=== PATIENT | male | born 1935 | race Caucasian/White ===

== ENCOUNTER 2016-04-02 10:49 | Outpatient (CLI) | payer MEDICARE | END 2016-04-02 10:50 | disposition home or self-care (01) | DX: E29.1 Testicular hypofunction (principal) ==

== ENCOUNTER 2016-05-15 08:57 | Outpatient (CLI) | payer MEDICARE | END 2016-05-15 08:58 | disposition home or self-care (01) | DX: E78.5 Hyperlipidemia, unspecified (principal); E29.1 Testicular hypofunction ==

== ENCOUNTER 2016-05-22 10:20 | Outpatient (CLI) | payer MEDICARE | END 2016-05-22 10:21 | disposition home or self-care (01) | DX: E78.5 Hyperlipidemia, unspecified (principal); E29.1 Testicular hypofunction ==

== ENCOUNTER 2016-09-16 09:09 | Outpatient (CLI) | payer MEDICARE ==
[2016-09-16 18:28] LABS: BASOPHILS # (AUTO) 0.1 10^3/uL (0.0-0.1); EOSINOPHILS # (AUTO) 0.4 10^3/uL (0.0-0.7); EOSINOPHILS % (AUTO) 5.1 %; HCT - HEMATOCRIT 37.5 % (42.0-52.0); HGB - HEMOGLOBIN 12.5 g/dL (14.0-18.0); LYMPHOCYTES # (AUTO) 1.8 10^3/uL (1.5-3.5); LYMPHOCYTES % (AUTO) 24.8 %; MEAN CORPUSCULAR HEMOGLOBIN 32.3 pg (27.0-31.0); MEAN CORPUSCULAR HGB CONC 33.3 g/dL (32.0-36.0); MEAN CORPUSCULAR VOLUME 96.8 fL (80.0-94.0); MONOCYTES # (AUTO) 0.7 10^3/uL (0.0-1.0); MONOCYTES % (AUTO) 9.3 %; NEUTROPHILS # (AUTO) 4.2 10^3/uL (1.5-6.6); NEUTROPHILS % (AUTO) 59.8 %; NUCLEATED RED BLOOD CELLS AUTO 0.1 /100WBC; RED BLOOD COUNT 3.87 10^6/uL (4.70-6.10); RED CELL DISTRIBUTION WIDTH 13.3 % (12.0-15.0); UNCORRECTED WHITE BLOOD COUNT 7.1 x10^3/uL; WHITE BLOOD COUNT 7.1 x10^3/uL (4.8-10.8)
[2016-09-16 19:09] LABS: ALBUMIN/GLOBULIN RATIO 1.7 (1.0-2.2); BILIRUBIN,TOTAL 0.4 mg/dL (0.2-1.0); CALCIUM 9.5 mg/dL (8.5-10.3); CREATININE 1.3 mg/dL (0.6-1.2); POTASSIUM 4.7 mmol/L (3.5-5.0)
[2016-09-18 22:21] LABS: TEST RESULT REPORT (())
== END 2016-09-16 09:10 | disposition home or self-care (01) ==
LOC: LAB.F 09:09
PROVIDERS: ATTEND Physician Assistant Medical
DX: I10 Essential (primary) hypertension (principal)
CPT/HCPCS: 36415; 80053; 81599; 84270; 84402; 84403; 85025

== ENCOUNTER 2016-11-03 09:24 | Outpatient (CLI) | payer MEDICARE ==
[2016-11-03 18:44] LABS: CHOL/HDL RATIO 3.4 (<5.0); CHOLESTEROL 141 mg/dL; HDL CHOLESTEROL 41 mg/dL; LDL/HDL RATIO 2.1 (<3.6); TRIGLYCERIDES 71 mg/dL; VLDL CHOLESTEROL 14 mg/dL
== END 2016-11-03 09:25 | disposition home or self-care (01) ==
LOC: LAB.F 09:24
PROVIDERS: ATTEND Physician Assistant Medical
DX: E78.5 Hyperlipidemia, unspecified (principal); E29.1 Testicular hypofunction
CPT/HCPCS: 36415; 80061; 84403

== ENCOUNTER 2016-12-14 09:06 | Outpatient (CLI) | payer MEDICARE ==
[2016-12-14 17:50] LABS: BASOPHILS # (AUTO) 0.1 10^3/uL (0.0-0.1); BASOPHILS % (AUTO) 0.9 %; EOSINOPHILS # (AUTO) 0.3 10^3/uL (0.0-0.7); EOSINOPHILS % (AUTO) 5.3 %; HCT - HEMATOCRIT 37.2 % (42.0-52.0); HGB - HEMOGLOBIN 12.3 g/dL (14.0-18.0); LYMPHOCYTES # (AUTO) 2.1 10^3/uL (1.5-3.5); MEAN CORPUSCULAR HEMOGLOBIN 31.8 pg (27.0-31.0); MEAN CORPUSCULAR VOLUME 96.3 fL (80.0-94.0); MONOCYTES # (AUTO) 0.6 10^3/uL (0.0-1.0); MONOCYTES % (AUTO) 10.2 %; NEUTROPHILS # (AUTO) 2.9 10^3/uL (1.5-6.6); NEUTROPHILS % (AUTO) 48.6 %; NUCLEATED RED BLOOD CELLS AUTO 0.1 /100WBC; RED BLOOD COUNT 3.86 10^6/uL (4.70-6.10); RED CELL DISTRIBUTION WIDTH 13.6 % (12.0-15.0); UNCORRECTED WHITE BLOOD COUNT 5.9 x10^3/uL; WHITE BLOOD COUNT 5.9 x10^3/uL (4.8-10.8)
[2016-12-18 16:47] LABS: TEST RESULT REPORT
== END 2016-12-14 09:07 | disposition home or self-care (01) ==
LOC: LAB.F 09:06
PROVIDERS: ATTEND Physician Assistant Medical
DX: E29.1 Testicular hypofunction (principal); D64.9 Anemia, unspecified
CPT/HCPCS: 36415; 81599; 82670; 84402; 84403; 85025

== ENCOUNTER 2017-02-15 09:26 | Outpatient (CLI) | payer MEDICARE ==
[2017-02-15 18:50] LABS: ALBUMIN 4.6 g/dL (3.2-5.5); ALBUMIN/GLOBULIN RATIO 1.6 (1.0-2.2); ALKALINE PHOSPHATASE 48 IU/L (42-121); ALT ALANINE AMINOTRANSFERASE 30 IU/L (10-60); AST ASPARTATE AMINOTRANSFERASE 33 IU/L (10-42); BILIRUBIN,TOTAL 0.5 mg/dL (0.2-1.0); BUN - BLOOD UREA NITROGEN 35 mg/dL (6-20); CALCIUM 9.3 mg/dL (8.5-10.3); CARBON DIOXIDE - CO2 24 mmol/L (21-32); CHLORIDE 107 mmol/L (101-111); CHOL/HDL RATIO 3.8 (<5.0); CHOLESTEROL 169 mg/dL; CREATININE 1.5 mg/dL (0.6-1.2); GFR - MDRD 45 (>89); GLUCOSE 98 mg/dL (70-100); HDL CHOLESTEROL 44 mg/dL; LDL CHOLESTEROL,CALCULATED 105 mg/dL; LDL/HDL RATIO 2.4 (<3.6); SODIUM 138 mmol/L (135-145); TOTAL PROTEIN 7.4 g/dL (6.7-8.2); VLDL CHOLESTEROL 20 mg/dL
== END 2017-02-15 09:27 | disposition home or self-care (01) ==
LOC: LAB.F 09:26
PROVIDERS: ATTEND Physician Assistant Medical
DX: E29.1 Testicular hypofunction (principal); D64.9 Anemia, unspecified; E78.5 Hyperlipidemia, unspecified
CPT/HCPCS: 36415; 80053; 80061; 81599; 82607; 83721; 84402; 84403

== ENCOUNTER 2017-03-23 10:56 | Outpatient (CLI) | payer MEDICARE ==
[2017-03-23 18:40] LABS: CALCIUM 9.7 mg/dL (8.5-10.3); CREATININE 1.5 mg/dL (0.6-1.2)
== END 2017-03-23 10:57 | disposition home or self-care (01) ==
LOC: LAB.F 10:56
PROVIDERS: ATTEND Physician Assistant Medical
DX: N28.9 Disorder of kidney and ureter, unspecified (principal); E29.1 Testicular hypofunction
CPT/HCPCS: 36415; 80048; 81599; 84402; 84403

== ENCOUNTER 2017-05-06 09:39 | Outpatient (CLI) | payer MEDICARE ==
[2017-05-06 17:43] LABS: ALBUMIN 4.1 g/dL (3.2-5.5); ALBUMIN/GLOBULIN RATIO 1.6 (1.0-2.2); BILIRUBIN,TOTAL 0.5 mg/dL (0.2-1.0); CALCIUM 8.9 mg/dL (8.5-10.3); CREATININE 1.3 mg/dL (0.6-1.2); TOTAL PROTEIN 6.6 g/dL (6.7-8.2)
== END 2017-05-06 09:40 | disposition home or self-care (01) ==
LOC: LAB.F 09:39
PROVIDERS: ATTEND Physician Assistant Medical
DX: N28.9 Disorder of kidney and ureter, unspecified (principal)
CPT/HCPCS: 36415; 80053

== ENCOUNTER 2017-09-06 12:35 | Emergency (ER) | payer MEDICARE ==
[2017-09-06] MEDS ORDERED: ceFAZolin 2 GM/50 ML 2 GM/50 ML BAG IV ONE (13:43)
[2017-09-06] MEDS ORDERED: MORPHINE 10 MG/ML VIAL IVP STA (13:44)
[2017-09-06] MEDS ORDERED: TETANUS/DIPHTHERIA/PERTUSSIS 0.5 ML SYRINGE IM ONE (13:44)
--- NOTE | 2017-09-06 13:53 | ED Physician Documentation ---
PD HPI LOWER EXT INJURY - Stated complaint Stated Complaint: RIGHT LEG LAC - Chief complaint Chief Complaint: Laceration - History obtained from History obtained from: Patient - History of Present Illness PD HPI LOW EXT INJURY LOCATION: Right, Lower leg Type of injury: Laceration (chainsaw to the leg) Where injury occurred: Home Timing - onset: Today Timing - duration: Hours (1) Timing - details: Abrupt onset Pain level max: 5 Pain level now: 5 Improved by: Rest Worsened by: Moving, Palpating Associated symptoms: No: Weakness, Numbness, Tingling, Swelling Contributing factors: No: Anticoagulated Recently seen: Not recently seen Review of Systems Constitutional: denies: Fever, Chills Skin: denies: Rash Musculoskeletal: denies: Neck pain, Back pain PD PAST MEDICAL HISTORY - Past Medical History Cardiovascular: Hypertension Respiratory: None Endocrine/Autoimmune: None GI: None : None HEENT: None Psych: Depression Musculoskeletal: None Derm: None - Past Surgical History General: Appendectomy, Other HEENT: Other - Present Medications Home Medications: Ambulatory Orders Medication Instructions Recorded Confirmed Acetaminophen 1,000 mg PO BID PRN 10/15/15 12/09/15 Atorvastatin [Lipitor] 40 mg PO DAILY 10/15/15 12/09/15 Azelastine HCl 2 sprays INH DAILY 10/15/15 12/06/15 Gabapentin 300 mg PO BID 10/15/15 12/09/15 Lisinopril 5 mg PO DAILY 10/15/15 12/09/15 Multivit-Min/Iron Fum/Folic AC 1 tab PO DAILY 10/15/15 12/06/15 [Kfpwp-Zjzeesu-Jzcsqckn Tablet] Vardenafil HCl [Levitra] 2.5 mg PO ONCE PRN 10/15/15 12/06/15 Vit C/E/Zinc/Lutein/Zeaxanthin 1 each PO DAILY 10/15/15 12/06/15 [Ocuvite Eye [facility]] Vitamin B Complex Vit C No.4 150 mg PO DAILY 10/15/15 12/06/15 [Super B Complex] Cephalexin [Keflex] 500 mg PO Q6H #40 capsule 09/06/17 Hydrocodone/Acetaminophen 1 - 2 each PO Q6H PRN #14 tablet 09/06/17 [Hydrocodon-Acetaminophen 5-325] - Allergies Allergies/Adverse Reactions: Allergies Allergy/AdvReac Type Severity Reaction Status Date / Time No Known Drug Allergies Allergy Verified 09/06/17 13:31 PD ED PE NORMAL - Vitals Vital signs reviewed: Yes - General General: Alert and oriented X 3, No acute distress - HEENT HEENT: Moist mucous membranes - Neck Neck: Supple, no meningeal sign - Cardiac Cardiac: RRR - Respiratory Respiratory: No respiratory distress, Clear bilaterally - Abdomen Abdomen: Soft, Non tender, Non distended - Derm Derm: Warm and dry - Extremities Extremities: Other (R knee - proximal tibia deep laceration, bone visible.) Results - Vitals Vitals: Vital Signs - 24 hr 09/06/17 09/06/17 12:42 15:17 Temperature 36.8 C Heart Rate 71 58 L Respiratory 16 17 Rate Blood Pressure 116/81 H 133/96 H O2 Saturation 95 96 Oxygen O2 Source Room air - Labs Labs: Laboratory Tests 09/06/17 09/06/17 14:25 14:25 WBC 8.0 RBC 3.73 L Hgb 12.1 L Hct 35.9 L MCV 96.2 H MCH 32.4 H MCHC 33.7 RDW 13.6 Plt Count 188 MPV 9.4 Neut # (Auto) 5.2 Lymph # (Auto) 1.8 Inyo # (Auto) 0.6 Eos # (Auto) 0.3 Baso # (Auto) 0.0 Absolute Nucleated RBC 0.00 Nucleated RBC % 0.0 Sodium 137 Potassium 4.2 Chloride 106 Carbon Dioxide 25 Anion Gap 6.0 BUN 26 H Creatinine 1.2 Estimated GFR (MDRD) 58 L Glucose 89 Calcium 9.2 Total Bilirubin 0.8 AST 37 ALT 32 Alkaline Phosphatase 47 Total Protein 7.0 Albumin 4.1 Globulin 2.9 Albumin/Globulin Ratio 1.4 Lipase 47 - Rads (name of study) R knee xray Radiology: Prelim report reviewed, EMP read contemporaneously, See rad report ( 1. Possible minimal patella yosef. Query evidence of patellar tendon injury with soft tissue injury overlying the tibial tuberosity just inferior to the patellar tendon insertion. No fracture and no radiopaque foreign body however. 2. Minimal tricompartmental DJD. ) Procedures - Laceration (location) R knee Length in cm: 5 Wound type: Linear, Other (bone visible, but does not appear injured) Neurovascular status: Sensory intact, Motor intact, Vascular intact Tendon involvement: Tendon intact Anesthesia: Marcaine 0.5% Wound Preparation: Irrigated copiously NS Skin layer closure: Jarrett Other: Patient tolerated well, No complications, Neurovascular intact, Dressing applied, Tetanus booster given (tdap) Complexity: Simple PD MEDICAL DECISION MAKING - ED course Complexity details: reviewed results, re-evaluated patient, considered differential, d/w patient, d/w family, d/w [employer] sales consultant (Dr. Fried, came and evaluated the patient.) ED course: Patient is a 81-year-old male who presents to the emergency department with a laceration to the right lower from a chainsaw. Lacerations over the tibial tuberosity. X-ray does not show any bony abnormality or lecture. I consulted Dr. Fried, orthopedics who came and evaluated the patient. Feels that his tendon is intact. Recommends wound irrigation, closure and placed in a knee immobilizer. Will follow up in the office in 3 days for a wound check. Given IV Ancef and will place on Keflex. Tdap given. Wound closed. Warnings of infection and instructions on wound care given at bedside. Also counseled on how to minimize scarring. Patient counseled regarding signs and symptoms for which I believe and urgent re-evaluation would be necessary. Patient with good understanding of and agreement to plan and is comfortable going home at this time This document was made in part using voice recognition software. While efforts are made to proofread this document, sound alike and grammatical errors may occur. - Sepsis Event Vital Signs: Vital Signs - 24 hr 09/06/17 09/06/17 12:42 15:17 Temperature 36.8 C Heart Rate 71 58 L Respiratory 16 17 Rate Blood Pressure 116/81 H 133/96 H O2 Saturation 95 96 Oxygen O2 Source Room air Departure - Departure Disposition: 01 Home, Self Care Clinical Impression: Leg laceration Qualifiers: Encounter type: initial encounter Laterality: right Qualified Code(s): S81.811A - Laceration without foreign body, right lower leg, initial encounter Condition: Good Instructions: ED Laceration Ext Sutr Stap Tape Follow-Up: Didi Fried MD [Provider Admit Priv/Credential] - 09/09/17 Prescriptions: Cephalexin [Keflex] 500 mg PO Q6H #40 capsule Hydrocodone/Acetaminophen [Hydrocodon-Acetaminophen 5-325] 1 - 2 each PO Q6H PRN #14 tablet PRN Reason: pain Comments: Call the office for an appointment on for a wound check. Return if you worsen. Keep the wound clean and stay in the immobilizer. Return for redness, swelling or drainage from the wound Take all antibiotics until gone Discharge Date/Time: 09/06/17 15:32
[2017-09-06] MEDS ORDERED: BUPIVACAINE 0.5% PF 10 ML VIAL SUBQ STA (14:21)
--- NOTE | 2017-09-06 14:25 | XRAY Report ---
Procedure Date: 09/06/2017 Accession Number: [id number] / [id number] Procedure: XR - Knee 4 View RT CPT Code: FULL RESULT: EXAM: RIGHT KNEE RADIOGRAPHY EXAM DATE: 09/06/2017 02:12 PM. CLINICAL HISTORY: Right knee vs chainsaw. COMPARISON: None. TECHNIQUE: 3 views. FINDINGS: Bones: No acute displaced fracture. No suspicious focal osseous lesion. Tiny traction enthesophyte at the quadriceps insertion. Small well-corticated ossific density overlies the superior aspect of the medial tibial spine, likely intra-articular loose body and perhaps sequela of remote injury. Joints: No effusion. No dislocation. Possible patella yosef. Minimal spurring at the patella and medial and lateral compartments without definite joint space narrowing by noncontrast exam. No effusion. Soft Tissues: Soft tissue defect over the tibial tuberosity anteriorly. No radiopaque foreign body. IMPRESSION: 1. Possible minimal patella yosef. Query evidence of patellar tendon injury with soft tissue injury overlying the tibial tuberosity just inferior to the patellar tendon insertion. No fracture and no radiopaque foreign body however. 2. Minimal tricompartmental DJD. RADIA
[2017-09-06 14:35] LABS: BASOPHILS % (AUTO) 0.5 %; EOSINOPHILS # (AUTO) 0.3 10^3/uL (0.0-0.7); EOSINOPHILS % (AUTO) 4.2 %; HGB - HEMOGLOBIN 12.1 g/dL (14.0-18.0); LYMPHOCYTES # (AUTO) 1.8 10^3/uL (1.5-3.5); LYMPHOCYTES % (AUTO) 22.9 %; MEAN CORPUSCULAR HEMOGLOBIN 32.4 pg (27.0-31.0); MEAN CORPUSCULAR HGB CONC 33.7 g/dL (32.0-36.0); MEAN CORPUSCULAR VOLUME 96.2 fL (80.0-94.0); MEAN PLATELET VOLUME 9.4 fL (7.4-11.4); MONOCYTES # (AUTO) 0.6 10^3/uL (0.0-1.0); MONOCYTES % (AUTO) 7.3 %; NEUTROPHILS # (AUTO) 5.2 10^3/uL (1.5-6.6); NEUTROPHILS % (AUTO) 65.1 %; PLT - PLATELET COUNT 188 10^3/uL (130-450); RED BLOOD COUNT 3.73 10^6/uL (4.70-6.10); RED CELL DISTRIBUTION WIDTH 13.6 % (12.0-15.0)
[2017-09-06 14:48] LABS: ALBUMIN 4.1 g/dL (3.2-5.5); ALBUMIN/GLOBULIN RATIO 1.4 (1.0-2.2); BILIRUBIN,TOTAL 0.8 mg/dL (0.2-1.0); CALCIUM 9.2 mg/dL (8.5-10.3); CREATININE 1.2 mg/dL (0.6-1.2)
[2017-09-06] MEDS ORDERED: BACITRACIN OINT TOP ONE (15:16)
[2017-09-06 15:18] VITALS: BP 133/96
--- NOTE | 2017-09-06 20:17 | CONSULTATION NOTE ---
DATE OF SERVICE: 09/06/2017 Physician: Didi Fried MD REASON FOR CONSULTATION: Chainsaw laceration of right knee. REQUESTING PHYSICIAN: Sean Smith M.D. HISTORY OF PRESENT ILLNESS: Patient is an 82-year-old male who has a right knee laceration caused by a chainsaw injury. The patient was cutting with a chainsaw when apparently ricocheted off an object and cut across the anterior tibial tubercle of his right knee causing about a 5 cm laceration to bon e. The patient presented to the emergency room with pain and bleeding from his laceration. He was f ound to be able to move his knee and had complete strength in extension and x-rays that did not show air in the joint, but a small defect in the tissues anterior to the tibial tubercle. I was asked to consult on the patient to rule out whether this was an operative or nonoperative condition. The adriano ent's prior medical history and medications were documented by Dr. Smith. The patient has not had p revious right knee problems. PHYSICAL EXAMINATION: The examination of his knee showed a slightly oblique 5 cm jagged laceration o nicole the tibial tubercle with direct extension down to the lower aspect of the infrapatellar bursa and exposing the inferior aspect of the patellar tendon insertion on the tibial tubercle where there was a 1 cm gash in bone, very superficial and distal to the main insertion site of the tendon. The knee was cycled in flexion and extension cycles to observe the tendon and its insertion point and it was firmly attached proximal to where the bone had been gouged. There was some sawdust and other debris in the wound evident. The patient had complete flexion and extension, complete extension strength, n o retraction of tendon and no penetration into the knee with normal neurovascular exam. ASSESSMENT AND PLAN: After this careful observation of the knee, it was felt that this problem could be managed in a nonaggressive fashion with simple washout, irrigation and debridement, simple layere d wound closure and placement of a knee brace, and this advice was given to Dr. Smith who planned on pursuing that treatment for the patient, also to follow up in my office for wound check in 4 days an d followup for suture removal after that. The patient was to be in a knee immobilizer for protection . TD: 09/06/2017 17:01
== END 2017-09-06 15:32 | disposition home or self-care (01) ==
LOC: ED 12:35
DX: S81.821A Laceration with foreign body, right lower leg, initial encounter (principal); W29.3XXA Contact with powered garden and outdoor hand tools and machinery, initial encounter; Y93.89 Activity, other specified; Y92.009 Unspecified place in unspecified non-institutional (private) residence as the place of occurrence of the external cause; Z23 Encounter for immunization; I10 Essential (primary) hypertension
CPT/HCPCS: 12002; 36415; 73564; 80053; 83690; 85025; 90471; 90715; 96374; 96375; 99283; 99284; A9270; J0690

== ENCOUNTER 2017-12-07 09:54 | Outpatient (CLI) | payer MEDICARE ==
[2017-12-07 18:31] LABS: ALBUMIN 4.3 g/dL (3.2-5.5); ALBUMIN/GLOBULIN RATIO 1.5 (1.0-2.2); ALKALINE PHOSPHATASE 57 IU/L (42-121); ALT ALANINE AMINOTRANSFERASE 28 IU/L (10-60); AST ASPARTATE AMINOTRANSFERASE 28 IU/L (10-42); BILIRUBIN,TOTAL 0.6 mg/dL (0.2-1.0); BUN - BLOOD UREA NITROGEN 40 mg/dL (6-20); CALCIUM 9.4 mg/dL (8.5-10.3); CARBON DIOXIDE - CO2 26 mmol/L (21-32); CHLORIDE 105 mmol/L (101-111); CHOL/HDL RATIO 6.1 (<5.0); CHOLESTEROL 261 mg/dL; CREATININE 1.5 mg/dL (0.6-1.2); GFR - MDRD 45 (>89); GLUCOSE 100 mg/dL (70-100); HDL CHOLESTEROL 43 mg/dL; LDL CHOLESTEROL,CALCULATED 196 mg/dL; LDL/HDL RATIO 4.6 (<3.6); SODIUM 138 mmol/L (135-145); TOTAL PROTEIN 7.1 g/dL (6.7-8.2); VLDL CHOLESTEROL 22 mg/dL
== END 2017-12-07 09:55 | disposition home or self-care (01) ==
LOC: LAB.F 09:54
PROVIDERS: ATTEND Physician Assistant Medical
DX: N28.9 Disorder of kidney and ureter, unspecified (principal); E78.5 Hyperlipidemia, unspecified; E29.1 Testicular hypofunction
CPT/HCPCS: 80053; 80061; 81599; 83721; 84402; 84403

== ENCOUNTER 2018-05-06 11:11 | Outpatient (CLI) | payer MEDICARE ==
[2018-05-06 17:14] LABS: BASOPHILS % (AUTO) 0.7 %; EOSINOPHILS # (AUTO) 0.2 10^3/uL (0.0-0.7); EOSINOPHILS % (AUTO) 3.9 %; HGB - HEMOGLOBIN 11.2 g/dL (14.0-18.0); LYMPHOCYTES # (AUTO) 1.9 10^3/uL (1.5-3.5); LYMPHOCYTES % (AUTO) 32.9 %; MEAN CORPUSCULAR HEMOGLOBIN 31.4 pg (27.0-31.0); MEAN CORPUSCULAR HGB CONC 32.5 g/dL (32.0-36.0); MEAN CORPUSCULAR VOLUME 96.7 fL (80.0-94.0); MEAN PLATELET VOLUME 9.9 fL (7.4-11.4); MONOCYTES # (AUTO) 0.6 10^3/uL (0.0-1.0); MONOCYTES % (AUTO) 10.4 %; NEUTROPHILS % (AUTO) 52.1 %; PLT - PLATELET COUNT 229 10^3/uL (130-450); RED BLOOD COUNT 3.56 10^6/uL (4.70-6.10); RED CELL DISTRIBUTION WIDTH 13.2 % (12.0-15.0); WHITE BLOOD COUNT 5.7 x10^3/uL (4.8-10.8)
[2018-05-06 17:33] LABS: ALBUMIN/GLOBULIN RATIO 1.4 (1.0-2.2); ALKALINE PHOSPHATASE 81 IU/L (42-121); ALT ALANINE AMINOTRANSFERASE 120 IU/L (10-60); AST ASPARTATE AMINOTRANSFERASE 90 IU/L (10-42); BILIRUBIN,TOTAL 0.6 mg/dL (0.2-1.0); BUN - BLOOD UREA NITROGEN 29 mg/dL (6-20); CALCIUM 9.7 mg/dL (8.5-10.3); CARBON DIOXIDE - CO2 25 mmol/L (21-32); CHLORIDE 106 mmol/L (101-111); CHOL/HDL RATIO 3.8 (<5.0); CHOLESTEROL 148 mg/dL; CREATININE 1.2 mg/dL (0.6-1.2); GFR - MDRD 58 (>89); GLUCOSE 104 mg/dL (70-100); HDL CHOLESTEROL 39 mg/dL; LDL CHOLESTEROL,CALCULATED 93 mg/dL; LDL/HDL RATIO 2.4 (<3.6); SODIUM 136 mmol/L (135-145); TOTAL PROTEIN 6.9 g/dL (6.7-8.2); VLDL CHOLESTEROL 16 mg/dL
== END 2018-05-06 11:12 | disposition home or self-care (01) ==
LOC: LAB.F 11:11
PROVIDERS: ATTEND Physician Assistant Medical
DX: E78.5 Hyperlipidemia, unspecified (principal); Z51.81 Encounter for therapeutic drug level monitoring; N28.9 Disorder of kidney and ureter, unspecified; D64.9 Anemia, unspecified; Z79.899 Other long term (current) drug therapy
CPT/HCPCS: 36415; 80053; 80061; 83721; 85025

== ENCOUNTER 2018-05-13 08:00 | Outpatient (CLI) | payer MEDICARE | END 2018-05-13 23:59 | disposition home or self-care (01) | LOC: LAB.F 08:00 | PROVIDERS: ATTEND Physician Assistant Medical | DX: E87.5 Hyperkalemia (principal) | CPT/HCPCS: 36415; 84132 ==

== ENCOUNTER 2018-09-13 08:55 | Outpatient (CLI) | payer MEDICARE | END 2018-09-13 08:56 | disposition home or self-care (01) | LOC: LAB.S 08:55 | PROVIDERS: ATTEND Physician Assistant Medical | DX: E29.1 Testicular hypofunction (principal) | CPT/HCPCS: 36415; 81599; 84402; 84403 ==

== ENCOUNTER 2019-01-09 11:31 | Outpatient (CLI) | payer MEDICARE ==
[2019-01-09 18:01] LABS: BASOPHILS # (AUTO) 0.1 10^3/uL (0.0-0.1); BASOPHILS % (AUTO) 0.7 %; EOSINOPHILS # (AUTO) 0.4 10^3/uL (0.0-0.7); EOSINOPHILS % (AUTO) 5.3 %; HGB - HEMOGLOBIN 12.4 g/dL (14.0-18.0); LYMPHOCYTES # (AUTO) 2.1 10^3/uL (1.5-3.5); MEAN CORPUSCULAR HEMOGLOBIN 30.7 pg (27.0-31.0); MEAN CORPUSCULAR HGB CONC 31.2 g/dL (32.0-36.0); MEAN CORPUSCULAR VOLUME 98.3 fL (80.0-94.0); MEAN PLATELET VOLUME 11.9 fL (7.4-11.4); MONOCYTES # (AUTO) 0.8 10^3/uL (0.0-1.0); MONOCYTES % (AUTO) 9.3 %; NEUTROPHILS # (AUTO) 4.7 10^3/uL (1.5-6.6); NEUTROPHILS % (AUTO) 58.3 %; PLT - PLATELET COUNT 224 10^3/uL (130-450); RED BLOOD COUNT 4.04 10^6/uL (4.70-6.10); RED CELL DISTRIBUTION WIDTH 13.5 % (12.0-15.0); WHITE BLOOD COUNT 8.1 x10^3/uL (4.8-10.8)
[2019-01-09 20:49] LABS: % IRON SATURATION 23 % (20-50); ALBUMIN 4.3 g/dL (3.2-5.5); ALBUMIN/GLOBULIN RATIO 1.2 (1.0-2.2); ALKALINE PHOSPHATASE 85 IU/L (42-121); ALT ALANINE AMINOTRANSFERASE 52 IU/L (10-60); AST ASPARTATE AMINOTRANSFERASE 48 IU/L (10-42); BILIRUBIN,TOTAL 0.4 mg/dL (0.2-1.0); BUN - BLOOD UREA NITROGEN 26 mg/dL (6-20); CALCIUM 9.5 mg/dL (8.5-10.3); CARBON DIOXIDE - CO2 26 mmol/L (21-32); CHLORIDE 104 mmol/L (101-111); CHOLESTEROL 166 mg/dL; CREATININE 1.4 mg/dL (0.6-1.2); GFR - MDRD 49 (>89); GLUCOSE 101 mg/dL (70-100); HDL CHOLESTEROL 41 mg/dL; IRON 88 ug/dL (45-182); LDL CHOLESTEROL,CALCULATED 113 mg/dL; LDL/HDL RATIO 2.8 (<3.6); SODIUM 140 mmol/L (135-145); TOTAL IRON BINDING CAPACITY 379 ug/dL (250-450); TOTAL PROTEIN 7.8 g/dL (6.7-8.2); TRANSFERRIN 271 mg/dL (180-329); VLDL CHOLESTEROL 12 mg/dL
== END 2019-01-09 23:59 | disposition home or self-care (01) ==
LOC: LAB.S 11:31
PROVIDERS: ATTEND Physician Assistant Medical
DX: E87.5 Hyperkalemia (principal); N28.9 Disorder of kidney and ureter, unspecified; R41.3 Other amnesia; D64.9 Anemia, unspecified
CPT/HCPCS: 36415; 80053; 80061; 82607; 82728; 82746; 83540; 83721; 84443; 84466; 85025

== ENCOUNTER 2019-01-30 06:11 | Day surgery (SDC) | payer MEDICARE ==
[2019-01-30] MEDS ORDERED: PROPOFOL 200 MG/20 ML VIAL IVP ONE (06:12)
[2019-01-30] MEDS ORDERED: fentaNYL 100 MCG/2 ML VIAL IVP ONE (06:12)
[2019-01-30] MEDS ORDERED: ACETAMINOPHEN 1,000 MG/100 ML 100 ML IV ONE (06:12)
[2019-01-30] MEDS ORDERED: CEFAZOLIN SODIUM IN 0.9 % NACL 2 GM/100 ML BAG IV ONE (06:24)
[2019-01-30] MEDS ORDERED: ENOXAPARIN 30 MG/0.3 ML SYRINGE SUBQ ONE (06:24)
[2019-01-30] MEDS ORDERED: LACTATED RINGERS 1,000 ML IV ONE (06:25)
[2019-01-30] MEDS ORDERED: LIDOCAINE 1%-EPI 1:100000 20 ML MDV ONE (07:01)
--- NOTE | 2019-01-30 07:20 | ANESTHESIA ---
Pre-Anesthesia VS, & Labs - Diagnosis right posterior scrotal mass - Procedure excision lesion, posterior scrotal mass Vital Signs: Temp Pulse Resp BP Pulse Ox 36.0 C L 64 15 143/80 H 96 01/30/19 06:42 01/30/19 06:42 01/30/19 06:42 01/30/19 06:42 01/30/19 06:42 Height 5 ft 10 in Weight (kg) 75 kg Body Mass Index 23.5 Home Medications and Allergies Atorvastatin [Lipitor] 40 mg PO DAILY 10/15/15 Gabapentin 300 mg PO BID 10/15/15 Lisinopril 5 mg PO DAILY 10/15/15 Multivit-Min/Iron Fum/Folic AC [Zgvqv-Naerjtm-Bkbkryse Tablet] 1 tab PO DAILY 10/15/15 Vit C/E/Zinc/Lutein/Zeaxanthin [Ocuvite Eye Health Gummies] 1 each PO DAILY 10/15/15 Vitamin B Complex Vit C No.4 [Super B Complex] 150 mg PO DAILY 10/15/15 Allergies/Adverse Reactions: Allergies Allergy/AdvReac Type Severity Reaction Status Date / Time No Known Drug Allergies Allergy Verified 09/06/17 13:31 Anes History & Medical History - Anesthetic History Anesthesia Complications: reports: No previous complications Family history of Anesthesia Complications: Denies Family history of Malignant Hyperthermia: Denies - Medical History Cardiovascular: reports: Hypertension, High cholesterol, Arrhythmia Pulmonary: reports: Sleep apnea Gastrointestinal: reports: GERD, Colon polyps Urinary: reports: Benign prostate hypertrophy Neuro: reports: None Musculoskeletal: reports: Osteoarthritis Endocrine/Autoimmune: reports: None Blood Disorders: reports: Anemia Skin: reports: None Smoking Status: Former smoker Psychosocial: reports: Depression - Surgical History General: Appendectomy, Colonoscopy, Other Eyes Ears Nose Throat (EENT): Tonsil/Adenoidectomy, Other Urologic: Prostatic surgery Exam General: Alert, Oriented x3, Cooperative, No acute distress Dental: WNL Mouth Openin Fingerbreadth Neck Mobility: Normal Mallampati classification: III Thyromental Distance: 4-6 cm Respiratory: Lungs clear, Normal breath sounds, No respiratory distress, No accessory muscle use Cardiovascular: Regular rate, Normal S1, Normal S2, No murmurs Abdomen: Normal bowel sounds, Soft, No tenderness, No hepatospenomegaly, No masses Extremities: No clubbing, No cyanosis, No edema, Normal pulses, No tenderness/swelling Neurological: Normal gait, Normal speech, Strength at 5/5 X4 ext, Normal tone, Sensation intact, Cranial nerves 3-12 NL, Reflexes 2+ Mental/Cognitive Status: Alert/Oriented X3, Normal for patient Cognitive Status: Within normal limits Plan Anesthesia Type: General Consent for Procedure(s) Verified and Reviewed: Yes Code Status: Attempt Resuscitation ASA classification: 2-Mild systemic disease Is this case an emergency?: No
[2019-01-30] MEDS ORDERED: LIDOCAINE 1%-EPI 1:100000 20 ML MDV SUBQ ONE (08:18)
[2019-01-30] MEDS ORDERED: HYDROcod/ACETAM 5/325 MG TABLET PO PRN (08:34)
[2019-01-30] MEDS ORDERED: ONDANSETRON 4 MG/2 ML VIAL IVP PRN (08:34)
[2019-01-30] MEDS ORDERED: HYDROmorphone 0.5 MG/0.5 ML SYRINGE IVP PRN (08:34)
--- NOTE | 2019-01-30 08:34 | IMMEDIATE POSTOPERATIVE NOTE ---
Immediate Postoperative Note - Procedure Note Procedure Date: 01/30/19 Pre-Op Diagnosis: Right posterior scrotal mass Procedure: Excision w/primary closure Right posterior scrotal mass Post-Op Diagnosis: Same Primary Surgeon: Zaheer Anesthesia Type: General ET tube, Local Findings: Likely longstanding epidermal inclusion cyst, Path pnd Complications: No complications Estimated Blood Loss (in cc): 5 Specimens and Cultures: Right posterior scrotal mass Plan of Care: See order set
[2019-01-30] MEDS ORDERED: LACTATED RINGERS 1,000 ML IV SCH (09:00)
[2019-01-30] MEDS ORDERED: HYDROcod/ACETAM 5/325 MG TABLET ONE (09:28)
[2019-01-30 10:20] VITALS: BP 112/56
--- NOTE | 2019-01-30 15:00 | PROCEDURE REPORT ---
DATE OF SERVICE: 01/30/2019 Physician: Miguel Schwab DO PREOPERATIVE DIAGNOSIS: Right posterior scrotal mass. POSTOPERATIVE DIAGNOSIS: Right posterior scrotal mass. PROCEDURE: Excision and primary closure, right posterior scrotal mass, layered technique. SURGEON: Miguel Schwab M.D. FISCAL ANALYST: Gio Williamson CRNA. TYPE OF ANESTHESIA: General endotracheal tube with local assist. ESTIMATED BLOOD LOSS: 5 mL FINDINGS: The lesion was approximately the size of a large grape and the incision required to excise this was 5 cm in length. COMPLICATIONS: None. CONDITION: Stable upon transport to recovery. HISTORY: The patient is an 83-year-old white male with a right posterior scrotal mass that grossly a ppears as a longstanding epidermal inclusion cyst, path report pending. DESCRIPTION OF PROCEDURE: The patient was taken to the operating room and under the above-mentioned anesthetic, he was placed in the lithotomy position and the testicles retracted superiorly. He was p repped and draped in the usual sterile manner and a double elliptical incision was used to excise the scrotal skin in a full-thickness en bloc technique and the specimen was then passed off the operativ e field and sent for pathology. Hemostasis was achieved through the use of electrocautery. The subc utaneous tissues were reapproximated with inverted interrupted 3-0 Vicryl sutures, and the skin silverio ns were joined with a running undyed subcuticular 4-0 Monocryl, and Dermabond applied over that, and the patient then received a local anesthetic infiltrated in the surrounding tissues. He was then tra nsported to recovery in satisfactory condition. TD: 01/30/2019 08:40
== END 2019-01-30 06:12 | disposition home or self-care (01) ==
LOC: SDS 06:11
PROVIDERS: ATTEND Surgery
PROC: 0VB50ZZ Excision of Scrotum, Open Approach (ICD-10-PCS; principal; 2019-01-30 09:15)
DX: L72.0 Epidermal cyst (principal); I11.9 Hypertensive heart disease without heart failure; Z87.891 Personal history of nicotine dependence
CPT/HCPCS: 11424; 12042; A9270; J0131; J0690; J1650; J7120

== ENCOUNTER 2019-07-17 13:01 | Emergency (ER) | payer MEDICARE ==
[2019-07-17] MEDS ORDERED: ALBUTEROL 1 PUFF INH STA (13:57)
[2019-07-17] MEDS ORDERED: predniSONE 20 MG TABLET PO STA (13:57)
--- NOTE | 2019-07-17 14:19 | ED Physician Documentation ---
PD HPI URI - Stated complaint Stated Complaint: FEVER/SOA - Chief complaint Chief Complaint: Resp - History obtained from History obtained from: Patient - History of Present Illness Timing - onset: How many days ago (10) Timing duration: Days (10) Timing details: Gradual onset Pain level max: 0 Pain level now: 0 Associated symptoms: Fever (Intermittent, T-max 101), Dry cough, Dyspnea (Wheezing). No: Nasal congestion, Rhinorrhea Contributing factors: Other (States quit smoking in 1974). No: Sick contact, Travel, Immunocompromised, Unimmunized, COPD / asthma Improves by: Rest Worsened by: Activity, Breathing Recently seen: Not recently seen Review of Systems Nose: denies: Rhinorrhea / runny nose, Congestion GI: denies: Vomiting, Diarrhea Skin: denies: Rash Musculoskeletal: denies: Neck pain, Back pain Neurologic: denies: Headache PD PAST MEDICAL HISTORY - Past Medical History Cardiovascular: Hypertension, High cholesterol, Arrhythmia Respiratory: Sleep apnea Neuro: None Endocrine/Autoimmune: None GI: GERD, Colon polyps : Benign prostate hypertrophy HEENT: Chronic vision loss, Chronic hearing loss Psych: Depression Musculoskeletal: Osteoarthritis Derm: None - Past Surgical History Past Surgical History: Yes General: Appendectomy, Colonoscopy, Other HEENT: Tonsil/Adenoidectomy, Other - Present Medications Home Medications: Ambulatory Orders Medication Instructions Recorded Confirmed Atorvastatin [Lipitor] 40 mg PO DAILY 10/15/15 01/30/19 Gabapentin 300 mg PO BID 10/15/15 01/30/19 Multivit-Min/Iron Fum/Folic AC 1 tab PO DAILY 10/15/15 01/30/19 [Cppwm-Nhalvjx-Iiaprvxd Tablet] Vit C/E/Zinc/Lutein/Zeaxanthin 1 each PO DAILY 10/15/15 01/30/19 [Ocuvite Eye [facility]] Vitamin B Complex Vit C No.4 150 mg PO DAILY 10/15/15 01/30/19 [Super B Complex] lisinopriL [Lisinopril] 5 mg PO DAILY 10/15/15 01/30/19 Albuterol Sulf [Ventolin Hfa 1 - 2 puffs INH Q4HR PRN #1 inhaler 07/17/19 Inhaler] Benzonatate [Tessalon Perle] 100 - 200 mg PO TID PRN #30 capsule 07/17/19 - Allergies Allergies/Adverse Reactions: Allergies Allergy/AdvReac Type Severity Reaction Status Date / Time No Known Drug Allergies Allergy Verified 07/17/19 13:07 - Social History Does the pt smoke?: No Smoking Status: Never smoker Does the pt drink ETOH?: No Does the pt have substance abuse?: No - Immunizations Immunizations are current?: Yes - POLST Patient has POLST: No PD ED PE NORMAL - Vitals Vital signs reviewed: Yes - General General: Alert and oriented X 3, No acute distress, Well developed/nourished - HEENT HEENT: Atraumatic, PERRL, Ears normal, Moist mucous membranes, Pharynx benign - Neck Neck: Supple, no meningeal sign - Cardiac Cardiac: RRR - Respiratory Respiratory: No respiratory distress, Other (Diffuse wheezing bilaterally) - Abdomen Abdomen: Soft, Non tender, Non distended - Derm Derm: Warm and dry - Extremities Extremities: No deformity - Neuro Neuro: Alert and oriented X 3 - Psych Psych: Normal mood, Normal affect Results - Vitals Vitals: Vital Signs - 24 hr 07/17/19 07/17/19 07/17/19 13:07 14:12 15:13 Temperature 37.2 C Heart Rate 69 90 65 Respiratory 14 18 18 Rate Blood Pressure 137/78 H 143/91 H O2 Saturation 95 97 Oxygen O2 Source Room air - Rads (name of study) Chest x-ray Radiology: Prelim report reviewed, EMP read contemporaneously, See rad report (No acute cardiopulmonary abnormality.) PD MEDICAL DECISION MAKING - ED course Complexity details: reviewed results, re-evaluated patient, considered differential, d/w patient, d/w family ED course: Patient feels better after breathing treatment. No acute findings on x-ray. We will continue supportive care. He is well-appearing, nontoxic. Afebrile. No hypoxia. No respiratory distress. Patient counseled regarding signs and symptoms for which I believe and urgent re-evaluation would be necessary. Patient with good understanding of and agreement to plan and is comfortable going home at this time This document was made in part using voice recognition software. While efforts are made to proofread this document, sound alike and grammatical errors may occur. Departure - Departure Disposition: 01 Home, Self Care Clinical Impression: Viral URI with cough Condition: Good Instructions: ED URI Viral W Wheezing Follow-Up: ANT MEADE MD [Primary Care Provider] - Within 1 week Prescriptions: Albuterol Sulf [Ventolin Hfa Inhaler] 1 - 2 puffs INH Q4HR PRN #1 inhaler PRN Reason: Shortness Of Air/Wheezing Benzonatate [Tessalon Perle] 100 - 200 mg PO TID PRN #30 capsule PRN Reason: Cough Comments: Return if you worsen. Your x-ray does not show any pneumonia today. Your coronavirus test should be back tomorrow or the next day. Use the inhaler as needed. Discharge Date/Time: 07/17/19 15:14
--- NOTE | 2019-07-17 14:24 | XRAY Report ---
Reason: fever, cough Procedure Date: 07/17/2019 Accession Number: [id number] / [id number] Procedure: XR - Chest 1 View X-Ray CPT Code: 68242 Final Report FULL RESULT: PROCEDURE: Chest 1 View X-Ray INDICATIONS: fever, cough TECHNIQUE: One view of the chest was acquired. COMPARISON: No recent comparisons. FINDINGS: Surgical changes and devices: None. Lungs and pleura: No pleural effusions or pneumothorax. Lungs are clear. Mediastinum: Mediastinal contours appear normal. Heart size is normal. Bones and chest wall: No suspicious bony lesions. Overlying soft tissues appear unremarkable. IMPRESSION: No acute cardiopulmonary abnormality. Reviewed by: Cesar Sommers MD on 07/17/2019 2:22 PM PDT Approved by: Cesar Sommers MD on 07/17/2019 2:22 PM PDT Station ID: [id number]
[2019-07-17 15:15] VITALS: BP 143/91
== END 2019-07-17 15:14 | disposition home or self-care (01) ==
LOC: ED 13:01
DX: J06.9 Acute upper respiratory infection, unspecified (principal); Z20.828 Contact with and (suspected) exposure to other viral communicable diseases; I10 Essential (primary) hypertension; Z87.891 Personal history of nicotine dependence
CPT/HCPCS: 71045; 94640; 99284; J7512; U0004; 81599

== ENCOUNTER 2019-10-11 11:32 | Outpatient (CLI) | payer MEDICARE ==
[2019-10-11 15:27] LABS: BASOPHILS % (AUTO) 0.5 %; EOSINOPHILS # (AUTO) 0.3 10^3/uL (0.0-0.7); EOSINOPHILS % (AUTO) 6.1 %; HGB - HEMOGLOBIN 11.7 g/dL (14.0-18.0); LYMPHOCYTES # (AUTO) 1.6 10^3/uL (1.5-3.5); LYMPHOCYTES % (AUTO) 29.4 %; MEAN CORPUSCULAR HEMOGLOBIN 32.2 pg (27.0-31.0); MEAN CORPUSCULAR HGB CONC 32.4 g/dL (32.0-36.0); MEAN CORPUSCULAR VOLUME 99.4 fL (80.0-94.0); MEAN PLATELET VOLUME 11.9 fL (7.4-11.4); MONOCYTES # (AUTO) 0.6 10^3/uL (0.0-1.0); MONOCYTES % (AUTO) 11.1 %; NEUTROPHILS # (AUTO) 2.9 10^3/uL (1.5-6.6); NEUTROPHILS % (AUTO) 52.7 %; PLT - PLATELET COUNT 163 10^3/uL (130-450); RED BLOOD COUNT 3.63 10^6/uL (4.70-6.10); RED CELL DISTRIBUTION WIDTH 13.1 % (12.0-15.0); WHITE BLOOD COUNT 5.6 x10^3/uL (4.8-10.8)
[2019-10-11 15:38] LABS: ALBUMIN 4.2 g/dL (3.2-5.5); ALBUMIN/GLOBULIN RATIO 1.4 (1.0-2.2); BILIRUBIN,TOTAL 0.3 mg/dL (0.2-1.0); CALCIUM 9.2 mg/dL (8.5-10.3); CREATININE 1.3 mg/dL (0.6-1.2); TOTAL PROTEIN 7.1 g/dL (6.7-8.2)
== END 2019-10-11 11:33 | disposition home or self-care (01) ==
LOC: LAB.S 11:32
PROVIDERS: ATTEND Physician Assistant
DX: D64.9 Anemia, unspecified (principal); R74.8 Abnormal levels of other serum enzymes; E87.5 Hyperkalemia; R19.5 Other fecal abnormalities; N50.9 Disorder of male genital organs, unspecified; R41.3 Other amnesia; N28.9 Disorder of kidney and ureter, unspecified
CPT/HCPCS: 36415; 80053; 82274; 85025

== ENCOUNTER 2020-04-04 12:30 | Outpatient (CLI) | payer MEDICARE ==
[2020-04-04 14:50] LABS: BASOPHILS # (AUTO) 0.1 10^3/uL (0.0-0.1); EOSINOPHILS # (AUTO) 0.4 10^3/uL (0.0-0.7); HGB - HEMOGLOBIN 12.1 g/dL (14.0-18.0); LYMPHOCYTES # (AUTO) 1.7 10^3/uL (1.5-3.5); LYMPHOCYTES % (AUTO) 32.9 %; MEAN CORPUSCULAR HGB CONC 32.1 g/dL (32.0-36.0); MEAN CORPUSCULAR VOLUME 99.7 fL (80.0-94.0); MONOCYTES # (AUTO) 0.6 10^3/uL (0.0-1.0); MONOCYTES % (AUTO) 11.2 %; NEUTROPHILS # (AUTO) 2.4 10^3/uL (1.5-6.6); NEUTROPHILS % (AUTO) 47.7 %; PLT - PLATELET COUNT 169 10^3/uL (130-450); RED BLOOD COUNT 3.78 10^6/uL (4.70-6.10); RED CELL DISTRIBUTION WIDTH 12.9 % (12.0-15.0)
[2020-04-04 15:13] LABS: PSA FREE 0.191 ng/mL (0.16-2.81)
[2020-04-04 15:14] LABS: PSA TOTAL 0.459 ng/mL (0.000-2.000)
== END 2020-04-04 12:31 | disposition home or self-care (01) ==
LOC: LAB.S 12:30
PROVIDERS: ATTEND Internal Medicine Gastroenterology
DX: E29.1 Testicular hypofunction (principal); D64.9 Anemia, unspecified
CPT/HCPCS: 36415; 84153; 84154; 85025

== ENCOUNTER 2020-05-21 13:38 | Outpatient (CLI) | payer MEDICARE ==
[2020-05-21 20:16] LABS: CREATININE 1.3 mg/dL (0.6-1.2)
[2020-05-21 20:35] LABS: ESTIMATED AVERAGE GLUCOSE 114 mg/dL (70-100); HEMOGLOBIN A1c% 5.6 % (4.27-6.07)
[2020-05-21 20:45] LABS: FOLATE 8.9 ng/mL (5.90 - >24.8)
== END 2020-05-21 13:39 | disposition home or self-care (01) ==
LOC: LAB.S 13:38
PROVIDERS: ATTEND Psychiatry & Neurology Neurology
DX: R29.898 Other symptoms and signs involving the musculoskeletal system (principal); R29.2 Abnormal reflex; R26.81 Unsteadiness on feet
CPT/HCPCS: 36415; 81599; 82550; 82565; 82607; 82746; 83036; 84155; 84165; 86334

== ENCOUNTER 2020-05-31 12:45 | Outpatient (CLI) | payer MEDICARE ==
[2020-05-31 14:42] LABS: BASOPHILS # (AUTO) 0.1 10^3/uL (0.0-0.1); BASOPHILS % (AUTO) 0.9 %; EOSINOPHILS # (AUTO) 0.4 10^3/uL (0.0-0.7); EOSINOPHILS % (AUTO) 6.6 %; HCT - HEMATOCRIT 33.4 % (42.0-52.0); HGB - HEMOGLOBIN 10.6 g/dL (14.0-18.0); LYMPHOCYTES # (AUTO) 1.8 10^3/uL (1.5-3.5); LYMPHOCYTES % (AUTO) 30.4 %; MEAN CORPUSCULAR HEMOGLOBIN 31.4 pg (27.0-31.0); MEAN CORPUSCULAR HGB CONC 31.7 g/dL (32.0-36.0); MEAN CORPUSCULAR VOLUME 98.8 fL (80.0-94.0); MEAN PLATELET VOLUME 12.3 fL (7.4-11.4); MONOCYTES # (AUTO) 0.6 10^3/uL (0.0-1.0); MONOCYTES % (AUTO) 10.2 %; NEUTROPHILS % (AUTO) 51.6 %; PLT - PLATELET COUNT 177 10^3/uL (130-450); RED BLOOD COUNT 3.38 10^6/uL (4.70-6.10); RED CELL DISTRIBUTION WIDTH 13.9 % (12.0-15.0); WHITE BLOOD COUNT 5.8 x10^3/uL (4.8-10.8)
== END 2020-05-31 12:46 | disposition home or self-care (01) ==
LOC: LAB.S 12:45
PROVIDERS: ATTEND Internal Medicine Gastroenterology
DX: D64.9 Anemia, unspecified (principal)
CPT/HCPCS: 36415; 85025

== ENCOUNTER 2020-07-02 07:20 | Outpatient (CLI) | payer MEDICARE | END 2020-07-02 07:21 | disposition home or self-care (01) | LOC: LAB.S 07:20 | PROVIDERS: ATTEND Physician Assistant | DX: E29.1 Testicular hypofunction (principal) | CPT/HCPCS: 36415; 84403 ==

== ENCOUNTER 2020-08-30 15:11 | Outpatient (CLI) | payer MEDICARE ==
[2020-08-30 20:19] LABS: CREATININE 1.5 mg/dL (0.6-1.2)
[2020-08-30 20:27] LABS: ESTIMATED AVERAGE GLUCOSE 114 mg/dL (70-100); HEMOGLOBIN A1c% 5.6 % (4.27-6.07)
[2020-08-30 20:46] LABS: FOLATE 7.8 ng/mL (5.90 - >24.8)
== END 2020-08-30 15:12 | disposition home or self-care (01) ==
LOC: LAB.S 15:11
PROVIDERS: ATTEND Psychiatry & Neurology Neurology
DX: R29.898 Other symptoms and signs involving the musculoskeletal system (principal); R26.81 Unsteadiness on feet; R29.2 Abnormal reflex
CPT/HCPCS: 36415; 81599; 82550; 82565; 82607; 82746; 83036; 84155; 84165; 86334

== ENCOUNTER 2020-10-24 08:10 | Day surgery (SDC) | payer MEDICARE ==
[~2020-10-24 08:10] MED LIST: BRIMONIDINE 0.2% OPHTH DROPS 5 ML ONE; BSS/LIDOCAINE/EPINEPHRINE 1 ML SYRINGE ONE; CYCLOPENTOLATE 1% OPHTH DROPS 2 ML ONE; EPINEPHrine 1 MG/ML AMP ONE; KETOROLAC 0.45% OPHTH DROPS ONE; PHENYLEPHRINE 2.5% OPHTH 2 ML DROPS ONE; PROPARACAINE 0.5% OPHTH DROPS 15 ML ONE; TIMOLOL 0.5% OPHTH DROPS ONE; TRIAMCIN/MOXIFLOX OPHTHALMIC 0.6 ML VIAL IO ONE; VANCOMYCIN OPHTHALMI 8MG/0.8ML 8 MG/0.8 ML SYRINGE IO ONE
[2020-10-24] MEDS ORDERED: LACTATED RINGERS 1,000 ML IV ONE (08:13)
--- NOTE | 2020-10-24 09:40 | ANESTHESIA ---
Pre-Anesthesia VS, & Labs - Diagnosis right nuclear sclerotic cataract - Procedure cataract extraction with IOL Vital Signs: Temp Pulse Resp BP Pulse Ox 36 C L 66 18 112/59 L 98 10/24/20 08:17 10/24/20 08:17 10/24/20 08:17 10/24/20 08:17 10/24/20 08:17 Height: 5 ft 9 in Weight (kg): 72 kg Body Mass Index: 23.4 BMI Classification: Healthy weight - NPO >8 hours Home Medications and Allergies Home Medications: Ambulatory Orders buPROPion [Wellbutrin Xl] 150 mg PO BID 10/23/20 Atorvastatin [Lipitor] 10 mg PO DAILY 10/15/15 Gabapentin 300 mg PO BID 10/15/15 Multivit-Min/Iron Fum/Folic AC [Ktznc-Yfxgiui-Okxqitmq Tablet] 1 tab PO DAILY 10/15/15 Vit C/E/Zinc/Lutein/Zeaxanthin [Ocuvite Eye Health Gummies] 1 each PO DAILY 10/15/15 Vitamin B Complex Vit C No.4 [Super B Complex] 150 mg PO DAILY 10/15/15 lisinopriL [Lisinopril] 5 mg PO DAILY 10/15/15 buPROPion [Wellbutrin Xl] 150 mg PO BID 10/23/20 Allergies/Adverse Reactions: Allergies Allergy/AdvReac Type Severity Reaction Status Date / Time No Known Drug Allergies Allergy Verified 07/17/19 13:07 Anes History & Medical History - Anesthetic History Anesthesia Complications: reports: No previous complications - Medical History Cardiovascular: reports: Hypertension, High cholesterol, Arrhythmia Pulmonary: reports: Sleep apnea Gastrointestinal: reports: GERD, Colon polyps Urinary: reports: Benign prostate hypertrophy Neuro: reports: None Musculoskeletal: reports: Osteoarthritis Endocrine/Autoimmune: reports: None Blood Disorders: reports: Anemia Skin: reports: None Smoking Status: Never smoker - Surgical History General: reports: Appendectomy, Colonoscopy, Other Eyes Ears Nose Throat (EENT): reports: Tonsil/Adenoidectomy, Other Urologic: reports: Prostatic surgery Exam General: Alert, Oriented x3 Dental: WNL Neck Mobility: Normal Mallampati classification: II Thyromental Distance: greater than 6 cm Respiratory: Lungs clear Cardiovascular: Regular rate, Normal S1, Normal S2 Plan Anesthesia Type: MAC Consent for Procedure(s) Verified and Reviewed: Yes Code Status: Attempt Resuscitation ASA classification: 2-Mild systemic disease Is this case an emergency?: No
[2020-10-24] MEDS ORDERED: MIDAZOLAM 2 MG/2 ML VIAL ONE ×3 (09:46→10:04)
[2020-10-24] MEDS ORDERED: fentaNYL 100 MCG/2 ML VIAL ONE (09:47)
[2020-10-24] MEDS ORDERED: TRYPAN BLUE 0.5 ML SYRINGE IO ONE (09:54)
[2020-10-24] MEDS ORDERED: EPINEPHrine 1 MG/ML AMP IR ONE (10:23)
[2020-10-24] MEDS ORDERED: BRIMONIDINE 0.2% OPHTH DROPS 5 ML OPTH ONE (10:23)
[2020-10-24] MEDS ORDERED: VANCOMYCIN OPHTHALMI 8MG/0.8ML 8 MG/0.8 ML SYRINGE IO ONE (10:24)
[2020-10-24] MEDS ORDERED: TIMOLOL 0.5% OPHTH DROPS OPTH ONE (10:24)
[2020-10-24] MEDS ORDERED: PROPARACAINE 0.5% OPHTH DROPS 15 ML EACHEYE ONE (10:24)
[2020-10-24] MEDS ORDERED: BSS/LIDOCAINE/EPINEPHRINE 1 ML SYRINGE IO ONE (10:24)
[2020-10-24] MEDS ORDERED: CHONDR SULF/HYALURONATE SYRINGE IO ONE (10:24)
[2020-10-24] MEDS ORDERED: TRIAMCIN/MOXIFLOX OPHTHALMIC 0.6 ML VIAL IO ONE (10:24)
[2020-10-24] MEDS ORDERED: LACTATED RINGERS 800 ML IV ONE (10:40)
--- NOTE | 2020-10-24 10:48 | OPERATIVE REPORT ---
Operative Report - Other Other Information/Narrative: Date of Surgery: 10/24/20 Preop Dx: Complex, visually significant cataract right eye. Complex due to small pupil requiring mechanical dilation using a Malyugin ring. This was the first cataract surgery. Postop Dx: Same Procedure: Phacoemulsification with posterior chamber intraocular lens implant right eye Surgeon: Dr. Adolfo Burton Anesthesia: Monitored anesthesia care Complications: None Operative Indications: This is a 85-year-old M with progressive vision loss in the right eye due to 2-3+ nuclear sclerotic cataract. Best corrected visual acuity was 20/25 with glare to 20/70 vision in the right eye. Indications for surgery were: - Overall decrease in vision - Difficulty reading - Difficulty seeing street signs - Difficulty driving in low light or at night - Difficulty driving at night because of headlights from other vehicles - Difficulty with glare or bright lights in any situation The patient was consented at length concerning the risks and benefits of cataract surgery after which the patient expressed a desire to proceed with surgery. Operative Procedure: The patient was taken into OR#3 and placed under monitored anesthesia care. A surgical time-out was conducted confirming correct patient, correct procedure, and correct surgical site. The patient was given topical anesthesia and then prepped and draped in the usual sterile fashion. The eye was entered at the 6 and 3 oclock positions. Intracameral Shugarcaine was injected into the anterior chamber followed by a dispersive viscoelastic. A Malyugin ring was injected into the anterior chamber and engaged with the pupillary margin at four points to expand the pupil. A continuous-tear curvilinear capsulorhexis was performed. The nucleus was hydrodissected and phacoemulsified. The cortex was evacuated using automated infusion and aspiration. A cohesive viscoelastic was injected into the capsular bag and a 18.0 diopter intraocular lens was inserted into the bag. The Malyugin ring was disengaged from the pupillary margin and removed from the anterior chamber. Infusion and aspiration were used to evacuate the viscoelastic materials from the eye. The wounds were hydrated and the eye inflated to physiologic pressure using balanced salt solution. Approximately 0.25ml of a mixture of triamcinol one and moxifloxacin was injected trans-sclerally into the vitreous in the inferotemporal quadrant using a 30 gauge cannula. An additional 0.55ml of a mixture of triamcinolone, moxifloxacin, and vancomycin was injected subconjunctivally in the superior quadrant for infection and inflammation prophylaxis. Wound integrity was checked with Weck-Diamond sponges. The patient was taken from the operating room in good condition and given post-op instructions.
[2020-10-24 10:57] VITALS: BP 104/61
--- NOTE | 2020-10-24 11:32 | ANESTHESIA POST OP EVALUATION ---
Anesthesia Post Eval - Post Anesthesia Eval Vitals: Last Vital Signs Temp 36 C L 10/24/20 10:56 Pulse 70 10/24/20 10:56 Resp 18 10/24/20 10:56 BP 104/61 10/24/20 10:56 Pulse Ox 96 10/24/20 10:56 CV Function Including HR & BP: Stable Pain Control: Satisfactory Nausea & Vomiting: Negative Mental Status: Baseline Respiratory Status: Airway Patent Hydration Status: Satisfactory Anesthesia Complications: None
== END 2020-10-24 08:11 | disposition home or self-care (01) ==
LOC: SDS 08:10
PROVIDERS: ATTEND Ophthalmology
DX: H25.11 Age-related nuclear cataract, right eye (principal); N40.0 Benign prostatic hyperplasia without lower urinary tract symptoms; Z79.899 Other long term (current) drug therapy; Z87.891 Personal history of nicotine dependence; G47.30 Sleep apnea, unspecified
CPT/HCPCS: 66982; A9270; J3490; J7120

== ENCOUNTER 2020-11-28 08:03 | Day surgery (SDC) | payer MEDICARE ==
[2020-11-28] MEDS ORDERED: LACTATED RINGERS 1,000 ML IV ONE ×2 (08:15→09:49)
--- NOTE | 2020-11-28 08:49 | ANESTHESIA ---
Pre-Anesthesia VS, & Labs - Diagnosis left eye cataract - Procedure left CATIOL Vital Signs: Temp Pulse Resp BP Pulse Ox 36.0 C L 67 18 113/69 96 11/28/20 08:05 11/28/20 08:05 11/28/20 08:05 11/28/20 08:05 11/28/20 08:05 Height: 5 ft 9 in Weight (kg): 73 kg Body Mass Index: 23.8 BMI Classification: Healthy weight - NPO >8 hours - Lab Results Lab results reviewed: Yes Home Medications and Allergies Atorvastatin [Lipitor] 10 mg PO DAILY 10/15/15 Gabapentin 300 mg PO BID 10/15/15 Multivit-Min/Iron Fum/Folic AC [Qulii-Xfnqptz-Vxetjedg Tablet] 1 tab PO DAILY 10/15/15 Vit C/E/Zinc/Lutein/Zeaxanthin [Ocuvite Eye Health Gummies] 1 each PO DAILY 10/15/15 Vitamin B Complex Vit C No.4 [Super B Complex] 150 mg PO DAILY 10/15/15 lisinopriL [Lisinopril] 5 mg PO DAILY 10/15/15 buPROPion [Wellbutrin Xl] 150 mg PO BID 10/23/20 Allergies/Adverse Reactions: Allergies Allergy/AdvReac Type Severity Reaction Status Date / Time No Known Drug Allergies Allergy Verified 11/28/20 08:25 Anes History & Medical History - Anesthetic History Anesthesia Complications: reports: No previous complications Family history of Anesthesia Complications: Denies Family history of Malignant Hyperthermia: Denies - Medical History Cardiovascular: reports: Hypertension, High cholesterol, Arrhythmia Pulmonary: reports: Sleep apnea Gastrointestinal: reports: GERD, Colon polyps Urinary: reports: Benign prostate hypertrophy Neuro: reports: None Musculoskeletal: reports: Osteoarthritis Endocrine/Autoimmune: reports: None Blood Disorders: reports: Anemia Skin: reports: None Smoking Status: Never smoker - Surgical History General: reports: Appendectomy, Colonoscopy, Other Eyes Ears Nose Throat (EENT): reports: Tonsil/Adenoidectomy, Other Urologic: reports: Prostatic surgery Exam General: Alert, Oriented x3, Cooperative, No acute distress Dental: WNL Mouth Openin Fingerbreadth Neck Mobility: Normal Mallampati classification: II Respiratory: Lungs clear, Normal breath sounds, No respiratory distress, No accessory muscle use Cardiovascular: Regular rate, Normal S1, Normal S2, No murmurs Plan Anesthesia Type: MAC Consent for Procedure(s) Verified and Reviewed: Yes Code Status: Attempt Resuscitation ASA classification: 2-Mild systemic disease Is this case an emergency?: No
[2020-11-28] MEDS ORDERED: MIDAZOLAM 2 MG/2 ML VIAL ONE (09:02)
[2020-11-28] MEDS ORDERED: TIMOLOL 0.5% OPHTH DROPS OPTH ONE (09:17)
[2020-11-28] MEDS ORDERED: BRIMONIDINE 0.2% OPHTH DROPS 5 ML OPTH ONE (09:17)
[2020-11-28] MEDS ORDERED: EPINEPHrine 1 MG/ML AMP IR ONE (09:17)
[2020-11-28] MEDS ORDERED: BSS/LIDOCAINE/EPINEPHRINE 1 ML SYRINGE IO ONE (09:17)
[2020-11-28] MEDS ORDERED: TRIAMCIN/MOXIFLOX OPHTHALMIC 0.6 ML VIAL IO ONE (09:18)
[2020-11-28] MEDS ORDERED: PROPARACAINE 0.5% OPHTH DROPS 15 ML EACHEYE ONE (09:18)
[2020-11-28] MEDS ORDERED: VANCOMYCIN OPHTHALMI 8MG/0.8ML 8 MG/0.8 ML SYRINGE IO ONE (09:18)
--- NOTE | 2020-11-28 09:44 | OPERATIVE REPORT ---
Operative Report - Other Other Information/Narrative: Date of Surgery: 11/28/20 Preop Dx: Complex, visually significant cataract right eye. Complex due to small pupil requiring mechanical dilation using a Malyugin ring. Cataract surgery was performed in the left eye on [id number].Postop Dx: Same Procedure: Phacoemulsification with posterior chamber intraocular lens implant right eye Surgeon: Dr. Adolfo Burton Anesthesia: Monitored anesthesia care Complications: None Operative Indications: This is a 85-year-old M with progressive vision loss in the right eye due to 2-3+ nuclear sclerotic cataract. Best corrected visual acuity was 20/20 with glare to 20/60 vision in the right eye. Indications for surgery were: - Overall decrease in vision - Difficulty seeing words on a computer screen - Difficulty reading - Difficulty seeing words, closed captions, or game scores on TV - Difficulty seeing street signs - Difficulty driving in low light or at night - Difficulty driving at night because of headlights from other vehicles - Difficulty with glare or bright lights in any situation The patient was consented at length concerning the risks and benefits of cataract surgery after which the patient expressed a desire to proceed with surgery. Operative Procedure: The patient was taken into OR#3 and placed under monitored anesthesia care. A surgical time-out was conducted confirming correct patient, correct procedure, and correct surgical site. The patient was given topical anesthesia and then prepped and draped in the usual sterile fashion. The eye was entered at the 6 and 3 oclock positions. Intracameral Shugarcaine was injected into the anterior chamber followed by a dispersive viscoelastic. A Malyugin ring was injected into the anterior chamber and engaged with the pupillary margin at four points to expand the pupil. A continuous-tear curvilinear capsulorhexis was performed. The nucleus was hydrodissected and phacoemulsified. The cortex was evacuated using automated infusion and aspiration. A cohesive viscoelastic was injected into the capsular bag and a 18.5 diopter intraocular lens was inserted into the bag. The Malyugin ring was disengaged from the pupillary margin and removed from the anterior chamber. Infusion and aspiration were used to evacuate the viscoelastic materials from the eye. The wounds were hydrated and the eye inflated to physiologic pressure using balanced salt solution. Approximately 0.25ml of a mixture of triamcinolone and moxifloxacin was injected trans-sclerally into the vitreous in the inferotemporal quadrant using a 30 gauge cannula. An additional 0.55ml of a mixture of triamcinolone, moxifloxacin, and vancomycin was injected subconjunctivally in the superior quadrant for infection and inflammation prophylaxis. Wound integrity was checked with Weck-Diamond sponges. The patient was taken from the operating room in good condition and given post-op instructions.
--- NOTE | 2020-11-28 09:47 | ANESTHESIA POST OP EVALUATION ---
Anesthesia Post Eval - Post Anesthesia Eval Vitals: Last Vital Signs Temp 36.4 C L 11/28/20 09:35 Pulse 68 11/28/20 09:35 Resp 11 L 11/28/20 09:35 BP 116/66 11/28/20 09:35 Pulse Ox 97 11/28/20 09:35 CV Function Including HR & BP: Stable Pain Control: Satisfactory Nausea & Vomiting: Negative Mental Status: Baseline Respiratory Status: Airway Patent Hydration Status: Satisfactory Anesthesia Complications: None
[2020-11-28 09:52] VITALS: BP 110/64
== END 2020-11-28 08:04 | disposition home or self-care (01) ==
LOC: SDS 08:03
PROVIDERS: ATTEND Ophthalmology
DX: H25.12 Age-related nuclear cataract, left eye (principal); G47.30 Sleep apnea, unspecified; N40.0 Benign prostatic hyperplasia without lower urinary tract symptoms; Z98.41 Cataract extraction status, right eye; Z87.891 Personal history of nicotine dependence
CPT/HCPCS: 66982; A9270; J3490; J7120; V2787

== ENCOUNTER 2021-03-05 15:56 | Outpatient (CLI) | payer MEDICARE ==
--- NOTE | 2021-03-05 16:42 | XRAY Report ---
PROCEDURE: Ribs w/PA Chest LT INDICATIONS: LEFT RIB PAIN TECHNIQUE: 2 views of the left ribs were acquired, along with a single view chest. COMPARISON: 07/17/2019 plain film FINDINGS: Surgical changes and devices: None. Bones and chest wall: No fractures or dislocations. No suspicious bony lesions. Overlying soft tis sues appear unremarkable. Lungs and pleura: No pleural effusions or pneumothorax. Lungs appear clear. Mediastinum: Mediastinal contours appear normal. Heart size is normal. IMPRESSION: No acute fracture. No osseous lesion. If symptoms and/or clinical suspicion for pathology continue, f urther assessment with repeat plain films, or advanced imaging (e.g., CT or bone scan) is recommended for further assessment. Reviewed by: Marya Saunders MD on 03/05/2021 4:41 PM PST Approved by: Marya Saunders MD on 03/05/2021 4:41 PM PST Station ID: [id number]
== END 2021-03-05 23:59 | disposition home or self-care (01) ==
LOC: DI.S 15:56
PROVIDERS: ATTEND Registered Nurse
DX: R07.81 Pleurodynia (principal)

== ENCOUNTER 2021-03-12 14:55 | Outpatient (CLI) | payer MEDICARE ==
--- NOTE | 2021-03-12 16:24 | DEXA Report ---
PROCEDURE: Dexa Spine and/or Hip INDICATIONS: OSTEOPOROSIS SCREENING TECHNIQUE: Dual energy x-ray absorptiometry (DXA) was performed on a Access Mobile System. Regions measur ed are the AP Spine, femoral neck, and if needed forearm. COMPARISON: None. FINDINGS: Lumbar Spine: Bone Mineral Density 1.556 g/cm/cm,T score 2.8. Left Hip: Bone Mineral Density 0.960 g/cm/cm,T score -1.0. Left Femoral Neck: Bone Mineral Density 0.801 g/cm/cm, T score -2.1. (T score greater or equal to -1.0: NORMAL) (T score from -1.1 to -2.4: OSTEOPENIA) (T score less than or equal to -2.5 to: OSTEOPOROSIS) Impression: Osteopenia. Patients with diagnosis of osteoporosis or osteopenia should have regular bone mineral density assess ment. For those eligible for Medicare, routine testing is allowed once every 2 years. Testing frequ ency can be increased for patients who have rapidly progressing disease or for those who are receivin g medical therapy to restore bone mass. Reviewed by: Wilfrido Guzman MD on 03/12/2021 4:22 PM PST Approved by: Wilfrido Guzman MD on 03/12/2021 4:22 PM PST Station ID: [id number]
== END 2021-03-12 14:56 | disposition home or self-care (01) ==
LOC: DI 14:55
PROVIDERS: ATTEND Registered Nurse
DX: Z13.820 Encounter for screening for osteoporosis (principal); M85.88 Other specified disorders of bone density and structure, other site

== ENCOUNTER 2021-06-20 14:45 | Outpatient (CLI) | payer MEDICARE ==
[2021-06-20 19:51] LABS: BASOPHILS % (AUTO) 0.5 %; EOSINOPHILS # (AUTO) 0.3 10^3/uL (0.0-0.7); EOSINOPHILS % (AUTO) 4.8 %; HCT - HEMATOCRIT 35.1 % (42.0-52.0); HGB - HEMOGLOBIN 11.5 g/dL (14.0-18.0); LYMPHOCYTES # (AUTO) 1.9 10^3/uL (1.5-3.5); LYMPHOCYTES % (AUTO) 30.8 %; MEAN CORPUSCULAR HEMOGLOBIN 32.5 pg (27.0-31.0); MEAN CORPUSCULAR HGB CONC 32.8 g/dL (32.0-36.0); MEAN CORPUSCULAR VOLUME 99.2 fL (80.0-94.0); MEAN PLATELET VOLUME 11.3 fL (7.4-11.4); MONOCYTES # (AUTO) 0.6 10^3/uL (0.0-1.0); MONOCYTES % (AUTO) 10.3 %; NEUTROPHILS # (AUTO) 3.2 10^3/uL (1.5-6.6); NEUTROPHILS % (AUTO) 53.4 %; PLT - PLATELET COUNT 182 10^3/uL (130-450); RED BLOOD COUNT 3.54 10^6/uL (4.70-6.10); RED CELL DISTRIBUTION WIDTH 13.7 % (12.0-15.0)
[2021-06-20 20:08] LABS: ALBUMIN 4.1 g/dL (3.2-5.5); ALBUMIN/GLOBULIN RATIO 1.5 (1.0-2.2); ALKALINE PHOSPHATASE 58 IU/L (42-121); ALT ALANINE AMINOTRANSFERASE 22 IU/L (10-60); AST ASPARTATE AMINOTRANSFERASE 23 IU/L (10-42); BILIRUBIN,TOTAL 0.7 mg/dL (0.2-1.0); BUN - BLOOD UREA NITROGEN 32 mg/dL (6-20); CALCIUM 9.2 mg/dL (8.5-10.3); CARBON DIOXIDE - CO2 25 mmol/L (21-32); CHLORIDE 107 mmol/L (101-111); CHOL/HDL RATIO 5.5 (<5.0); CHOLESTEROL 258 mg/dL; CREATININE 1.4 mg/dL (0.6-1.2); GFR - MDRD 48 (>89); GLUCOSE 88 mg/dL (70-100); HDL CHOLESTEROL 47 mg/dL; LDL CHOLESTEROL,CALCULATED 197 mg/dL; LDL/HDL RATIO 4.2 (<3.6); POTASSIUM 5.2 mmol/L (3.5-5.0); SODIUM 137 mmol/L (135-145); TOTAL PROTEIN 6.9 g/dL (6.7-8.2); TRIGLYCERIDES 69 mg/dL; VLDL CHOLESTEROL 14 mg/dL
[2021-06-20 20:20] LABS: THYROID STIMULATING HORMONE 1.41 uIU/mL (0.34-5.60)
== END 2021-06-20 14:46 | disposition home or self-care (01) ==
LOC: LAB.S 14:45
PROVIDERS: ATTEND Registered Nurse
DX: E29.1 Testicular hypofunction (principal); E78.5 Hyperlipidemia, unspecified; N28.9 Disorder of kidney and ureter, unspecified; I10 Essential (primary) hypertension
CPT/HCPCS: 36415; 80053; 80061; 83721; 84403; 84443; 85025

== ENCOUNTER 2022-09-05 15:15 | Outpatient (CLI) | payer MEDICARE | END 2022-09-05 23:59 | disposition critical access hospital (66) | LOC: EMS 15:15 | DX: R42 Dizziness and giddiness (principal); R61 Generalized hyperhidrosis; K59.00 Constipation, unspecified; R10.31 Right lower quadrant pain; R10.32 Left lower quadrant pain | CPT/HCPCS: A0425; A0429 ==

== ENCOUNTER 2022-09-05 15:47 | Emergency (ER) | payer MEDICARE ==
[2022-09-05] MEDS ORDERED: SODIUM CHLORIDE 0.9% 1,000 ML IV STA (16:18)
--- NOTE | 2022-09-05 16:37 | ED Physician Documentation ---
History of Present Illness - Stated complaint Stated Complaint: NEAR SYNCOPE - Chief complaint Chief Complaint: Neuro - Additonal information Additional information: 86-year-old male presents emergency department for evaluation and near syncope. He reports that for the last several months he has been having problems with constipation. He is intermittently using suppositories, enemas as well as MiraLAX. His has even manually disimpacted him. He has not taken any MiraLAX for several days. This afternoon he was on the toilet straining to defecate when he began to feel as though he was going to faint. He did not pass out. He had no chest pain or shortness of air. EMS was summoned and he is brought here. On presentation he is alert and well-appearing. Appropriate vital signs for age and condition. Abdominal exam is benign with no worrisome tenderness elicited. Review of Systems Constitutional: reports: Reviewed and negative Cardiac: reports: Reviewed and negative Respiratory: reports: Reviewed and negative GI: reports: Constipation Musculoskeletal: reports: Reviewed and negative Neurologic: reports: Near syncope PD PAST MEDICAL HISTORY - Past Medical History Cardiovascular: Hypertension, High cholesterol, Arrhythmia Respiratory: Sleep apnea Neuro: None Endocrine/Autoimmune: None GI: GERD, Colon polyps : Benign prostate hypertrophy HEENT: Chronic vision loss, Chronic hearing loss Psych: Depression Musculoskeletal: Osteoarthritis Derm: None - Past Surgical History Past Surgical History: Yes General: Appendectomy, Colonoscopy, Other HEENT: Tonsil/Adenoidectomy, Other - Present Medications Home Medications: Ambulatory Orders Medication Instructions Recorded Confirmed Atorvastatin [Lipitor] 10 mg PO DAILY 10/15/15 11/28/20 Gabapentin 300 mg PO BID 10/15/15 11/28/20 Multivit-Min/Iron Fum/Folic AC 1 tab PO DAILY 10/15/15 11/28/20 [Hspoy-Srirofi-Bgorhffq Tablet] Vit C/E/Zinc/Lutein/Zeaxanthin 1 each PO DAILY 10/15/15 11/28/20 [Ocuvite Eye Health Gummies] Vitamin B Complex Vit C No.4 150 mg PO DAILY 10/15/15 11/28/20 [Super B Complex] lisinopriL [Lisinopril] 5 mg PO DAILY 10/15/15 11/28/20 Albuterol Sulf [Ventolin Hfa 1 - 2 puffs INH Q4HR PRN #1 inhaler 07/17/19 11/28/20 Inhaler] buPROPion [Wellbutrin Xl] 150 mg PO BID 10/23/20 11/28/20 - Allergies Allergies/Adverse Reactions: Allergies Allergy/AdvReac Type Severity Reaction Status Date / Time No Known Drug Allergies Allergy Verified 09/05/22 15:51 - Social History Does the pt smoke?: No Smoking Status: Never smoker Does the pt drink ETOH?: No Does the pt have substance abuse?: No - Immunizations Immunizations are current?: Yes - POLST Patient has POLST: No PD ED PE NORMAL - General General: Alert and oriented X 3, No acute distress, Well developed/nourished - Neck Neck: Supple, no meningeal sign - Cardiac Cardiac: RRR, No murmur - Respiratory Respiratory: No respiratory distress, Clear bilaterally - Abdomen Abdomen: Normal bowel sounds, Soft, Non tender - Derm Derm: Normal color, Warm and dry - Extremities Extremities: No deformity - Neuro Neuro: Alert and oriented X 3, 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 Relevant findings are: Rate: Rate (enter#) (65) Rhythm: NSR [place]: LAD Intervals: Normal ME. No: Prolonged QT Ischemia: Non specific changes Computer interpretation: Agree with computer - Labs Labs: Laboratory Tests 09/05/22 09/05/22 16:41 16:41 WBC 14.2 H RBC 3.51 L Hgb 11.2 L Hct 34.6 L MCV 98.6 H MCH 31.9 H MCHC 32.4 RDW 13.8 Plt Count 182 MPV 10.6 Neut # (Auto) 11.8 H Lymph # (Auto) 0.8 L Slope # (Auto) 1.3 H Eos # (Auto) 0.2 Baso # (Auto) 0.0 Absolute Nucleated RBC 0.00 Nucleated RBC % 0.0 Sodium 139 Potassium 4.4 Chloride 110 Carbon Dioxide 23 Anion Gap 6.0 BUN 36 H Creatinine 1.9 H Estimated GFR (MDRD) 34 L Glucose 107 H Calcium 9.1 Total Bilirubin 0.4 AST 24 ALT 19 Alkaline Phosphatase 65 Total Protein 6.2 L Albumin 4.1 Globulin 2.1 Albumin/Globulin Ratio 2.0 Lipase 39 PD Medical Decision Making - ED course Complexity details: reviewed results, re-evaluated patient, considered differential, d/w patient ED course: 86-year-old male presents emergency department for evaluation of near syncope while straining on the toilet to have a bowel movement. He does report some constipation of the last several weeks. He has been inconsistent with use of MiraLAX, suppositories and enemas however. On presentation he is alert and well-appearing. No chest pain or shortness of air. His EKG is interpreted by myself was nonischemic. I did obtain CBC and electrolytes. He does have mild leukocytosis white count of 14,000 which I attribute to marginalization. His abdominal exam was benign with no tenderness elicited.I do note an elevated BUN and creatinine today with a BUN of 36 and a creatinine of 1.9. His baseline appears to be closer to 30 and 1.4. He was administered a liter of IV fluids today in the emergency department. I suspect the cause of his near syncope was vasovagal due to straining with bowel movement. I suspect that the constipation is likely due to dehydration resulting in prerenal azotemia and chronic kidney disease. Patient is advised to increase his hydration at home. He is to have his PCP repeat his renal labs in the next week. He is also advised to begin taking MiraLAX 2-3 times a day until he is 3-4 watery bowel movements. I discussed this plan with the patient his at the bedside and they are comfortable with discharge home. The usual emergent return precautions were discussed for worsening symptoms. Departure - Departure Disposition: 01 Home, Self Care Clinical Impression: Vasovagal near-syncope, Dehydration, CKD (chronic kidney disease) stage 3, GFR 30-59 ml/min Condition: Stable Record reviewed to determine appropriate education?: Yes Comments: Delroy you are straining to have a bowel movement and you nearly fainted. This is due to a condition called vasovagal syndrome which can occur anytime you strained too hard. You are straining because you are dehydrated and this disc dehydration is causing worsening constipation. Your kidney function today shows that you are dehydrated and it is worse than it has been in the past. When you get home I would like you to make sure that you stay well-hydrated so that your urine is a pale yellow. You should take MiraLAX 3-4 times over the next 24 to 48 hours to help with constipation. You can stop taking it after you have 3-4 watery bowel movements. Would like you to follow-up this ED visit with your primary care doctor. You should have your kidney function checked or repeated over the next week to ensure that it is remaining stable and that your hydration is improving. Please return to the ER if you are having worsening symptoms. Forms: PCP List
[2022-09-05 16:46] LABS: BASOPHILS % (AUTO) 0.3 %; EOSINOPHILS # (AUTO) 0.2 10^3/uL (0.0-0.7); EOSINOPHILS % (AUTO) 1.3 %; HCT - HEMATOCRIT 34.6 % (42.0-52.0); HGB - HEMOGLOBIN 11.2 g/dL (14.0-18.0); LYMPHOCYTES # (AUTO) 0.8 10^3/uL (1.5-3.5); LYMPHOCYTES % (AUTO) 5.9 %; MEAN CORPUSCULAR HEMOGLOBIN 31.9 pg (27.0-31.0); MEAN CORPUSCULAR HGB CONC 32.4 g/dL (32.0-36.0); MEAN CORPUSCULAR VOLUME 98.6 fL (80.0-94.0); MEAN PLATELET VOLUME 10.6 fL (7.4-11.4); MONOCYTES # (AUTO) 1.3 10^3/uL (0.0-1.0); MONOCYTES % (AUTO) 8.8 %; NEUTROPHILS # (AUTO) 11.8 10^3/uL (1.5-6.6); NEUTROPHILS % (AUTO) 83.4 %; PLT - PLATELET COUNT 182 10^3/uL (130-450); RED BLOOD COUNT 3.51 10^6/uL (4.70-6.10); RED CELL DISTRIBUTION WIDTH 13.8 % (12.0-15.0); WHITE BLOOD COUNT 14.2 x10^3/uL (4.8-10.8)
[2022-09-05 16:58] LABS: ALBUMIN 4.1 g/dL (3.2-5.5); BILIRUBIN,TOTAL 0.4 mg/dL (0.2-1.0); CALCIUM 9.1 mg/dL (8.5-10.3); CREATININE 1.9 mg/dL (0.6-1.3); POTASSIUM 4.4 mmol/L (3.5-4.5); TOTAL PROTEIN 6.2 g/dL (6.4-8.9)
--- NOTE | 2022-09-05 17:48 | XRAY Report ---
PROCEDURE: Chest 1 View X-Ray INDICATIONS: chest pain TECHNIQUE: One view of the chest was acquired. COMPARISON: None. FINDINGS: Surgical changes and devices: None. Lungs and pleura: No pleural effusions or pneumothorax. Lungs are clear. Mediastinum: Mediastinal contours appear normal. Heart size is normal. Bones and chest wall: No suspicious bony lesions. Overlying soft tissues appear unremarkable. IMPRESSION: No acute cardiopulmonary process. Reviewed by: Kd Lechuga MD on 09/05/2022 4:47 PM AKDT Approved by: Kd Lechuga MD on 09/05/2022 4:47 PM AKDT Station ID: [id number]
[2022-09-05 18:32] VITALS: BP 136/68
== END 2022-09-05 18:51 | disposition home or self-care (01) ==
LOC: ED 15:47
DX: R55 Syncope and collapse (principal); E86.0 Dehydration; I12.9 Hypertensive chronic kidney disease with stage 1 through stage 4 chronic kidney disease, or unspecified chronic kidney disease; N18.30 Chronic kidney disease, stage 3 unspecified; E78.00 Pure hypercholesterolemia, unspecified; Z79.899 Other long term (current) drug therapy
CPT/HCPCS: 36415; 80053; 83690; 85025; 93005; 96360; 99284

== ENCOUNTER 2022-09-07 12:03 | Emergency (ER) | payer MEDICARE ==
[2022-09-07 12:33] LABS: BASOPHILS # (AUTO) 0.1 10^3/uL (0.0-0.1); BASOPHILS % (AUTO) 0.5 %; EOSINOPHILS # (AUTO) 0.2 10^3/uL (0.0-0.7); EOSINOPHILS % (AUTO) 1.9 %; HCT - HEMATOCRIT 34.4 % (42.0-52.0); HGB - HEMOGLOBIN 11.1 g/dL (14.0-18.0); LYMPHOCYTES # (AUTO) 1.6 10^3/uL (1.5-3.5); LYMPHOCYTES % (AUTO) 14.6 %; MEAN CORPUSCULAR HEMOGLOBIN 31.7 pg (27.0-31.0); MEAN CORPUSCULAR HGB CONC 32.3 g/dL (32.0-36.0); MEAN CORPUSCULAR VOLUME 98.3 fL (80.0-94.0); MEAN PLATELET VOLUME 10.9 fL (7.4-11.4); MONOCYTES # (AUTO) 0.9 10^3/uL (0.0-1.0); MONOCYTES % (AUTO) 7.9 %; NEUTROPHILS # (AUTO) 8.1 10^3/uL (1.5-6.6); NEUTROPHILS % (AUTO) 74.9 %; PLT - PLATELET COUNT 193 10^3/uL (130-450); RED CELL DISTRIBUTION WIDTH 13.9 % (12.0-15.0); WHITE BLOOD COUNT 10.9 x10^3/uL (4.8-10.8)
[2022-09-07 12:50] LABS: ALBUMIN/GLOBULIN RATIO 1.5 (1.0-2.2); BILIRUBIN,TOTAL 0.5 mg/dL (0.2-1.0); CREATININE 1.3 mg/dL (0.6-1.3); POTASSIUM 4.1 mmol/L (3.5-4.5); TOTAL PROTEIN 6.7 g/dL (6.4-8.9)
--- NOTE | 2022-09-07 16:59 | ED Physician Documentation ---
History of Present Illness - Stated complaint Stated Complaint: GI - Chief complaint Chief Complaint: Abd Pain - History obtained from History obtained from: Patient, Family - History of Present Illness Timing: How many days ago (2) Pain level max: 0 Pain level now: 0 - Additonal information Additional information: Patient is an 86-year-old male who presents to the emergency department stating that he was seen here 2 days ago for constipation. He had 2 very large bowel movements and then had bright red blood per rectum for about 16 to 18 hours. The bleeding has since resolved. He is not having any abdominal pain, vomiting, fevers, chills. Nothing makes it better or worse. Had a reportedly normal col onoscopy 1 year ago. No lightheadedness, dizziness, chest pain, dyspnea. Patient is not on any anticoagulants. Review of Systems Constitutional: denies: Fever, Chills GI: denies: Vomiting, Diarrhea Skin: denies: Rash Musculoskeletal: denies: Neck pain, Back pain Neurologic: denies: Headache PD PAST MEDICAL HISTORY - Past Medical History Cardiovascular: Hypertension, High cholesterol, Arrhythmia Respiratory: Sleep apnea Neuro: None Endocrine/Autoimmune: None GI: GERD, Colon polyps : Benign prostate hypertrophy HEENT: Chronic vision loss, Chronic hearing loss Psych: Depression Musculoskeletal: Osteoarthritis Derm: None - Past Surgical History Past Surgical History: Yes General: Appendectomy, Colonoscopy, Other HEENT: Tonsil/Adenoidectomy, Other - Present Medications Home Medications: Ambulatory Orders Medication Instructions Recorded Confirmed Atorvastatin [Lipitor] 10 mg PO DAILY 10/15/15 09/07/22 Gabapentin 300 mg PO BID 10/15/15 09/07/22 Multivit-Min/Iron Fum/Folic AC 1 tab PO DAILY 10/15/15 09/07/22 [Pkzwk-Cqclqis-Jluvpddm Tablet] Vit C/E/Zinc/Lutein/Zeaxanthin 1 each PO DAILY 10/15/15 09/07/22 [[facility] Gumm[facility]] Vitamin B Complex Vit C No.4 150 mg PO DAILY 10/15/15 09/07/22 [Super B Complex] lisinopriL [Lisinopril] 5 mg PO DAILY 10/15/15 09/07/22 Albuterol Sulf [Ventolin Hfa 1 - 2 puffs INH Q4HR PRN #1 inhaler 07/17/19 09/07/22 Inhaler] buPROPion [Wellbutrin Xl] 150 mg PO BID 10/23/20 09/07/22 - Allergies Allergies/Adverse Reactions: Allergies Allergy/AdvReac Type Severity Reaction Status Date / Time No Known Drug Allergies Allergy Verified 09/05/22 15:51 - Social History Does the pt smoke?: No Smoking Status: Never smoker Does the pt drink ETOH?: No Does the pt have substance abuse?: No - Immunizations Immunizations are current?: Yes - POLST Patient has POLST: No PD ED PE NORMAL - Vitals Vital signs reviewed: Yes - General General: Alert and oriented X 3, No acute distress - HEENT HEENT: PERRL, Moist mucous membranes - Neck Neck: Supple, no meningeal sign - Cardiac Cardiac: RRR, Strong equal pulses - Respiratory Respiratory: No respiratory distress, Clear bilaterally - Abdomen Abdomen: Soft, Non tender, Non distended - Rectal Rectal: Other (Normal rectal exam. No blood in the rectal vault. No evidence of fissures.) - Derm Derm: Warm and dry - Extremities Extremities: No edema, No calf tenderness / cord - Neuro Neuro: Alert and oriented X 3 - Psych Psych: Normal mood, Normal affect Results - Vitals Vitals: Vital Signs - 24 hr 09/07/22 09/07/22 12:11 17:02 Temperature 36.7 C Heart Rate 71 67 Respiratory 20 14 Rate Blood Pressure 136/65 H 130/107 H O2 Saturation 97 99 Oxygen O2 Source Room air - Labs Labs: Laboratory Tests 09/07/22 09/07/22 12:23 12:23 WBC 10.9 H RBC 3.50 L Hgb 11.1 L Hct 34.4 L MCV 98.3 H MCH 31.7 H MCHC 32.3 RDW 13.9 Plt Count 193 MPV 10.9 Neut # (Auto) 8.1 H Lymph # (Auto) 1.6 [place] # (Auto) 0.9 Eos # (Auto) 0.2 Baso # (Auto) 0.1 Absolute Nucleated RBC 0.00 Nucleated RBC % 0.0 Sodium 136 Potassium 4.1 Chloride 106 Carbon Dioxide 26 Anion Gap 4.0 L BUN 16 Creatinine 1.3 Estimated GFR (MDRD) 53 L Glucose 126 H Calcium 9.0 Total Bilirubin 0.5 AST 18 ALT 15 Alkaline Phosphatase 59 Total Protein 6.7 Albumin 4.0 Globulin 2.7 Albumin/Globulin Ratio 1.5 Lipase 18 PD Medical Decision Making - ED course Complexity details: reviewed results, re-evaluated patient, considered differential, d/w patient, d/w family ED course: 86-year-old male with rectal bleeding after significant constipation. The rectal bleeding has since resolved. His hemoglobin is unchanged from his visit 2 days ago. Hemoglobin was 11.2 at that visit, 11.1 today. White blood cell count has decreased. No other significant lab abnormalities. Creatinine is back to his usual baseline. Abdomen is soft, nontender nondistended. No indication for emergent imaging today. Patient is tolerating p.o. without difficulty. No active bleeding here. We will have him follow-up with his doctor for further care. Patient counseled regarding signs and symptoms for which I believe and urgent re-evaluation would be necessary. Patient with good understanding of and agreement to plan and is comfortable going home at this time This document was made in part using voice recognition software. While efforts are made to proofread this document, sound alike and grammatical errors may occur. Departure - Departure Disposition: 01 Home, Self Care Clinical Impression: Hematochezia Condition: Good Instructions: ED Hematochezia Stable Follow-Up: Elayne Galloway ARNP [Primary Care Provider] - Within 1 week Comments: Please restart your Flomax as this will likely help your urinary stream. Please follow-up with your doctor for further evaluation of your constipation. Make sure you are drinking plenty of water at home. Your blood work does not show any significant abnormalities from your baseline today. Please return if you worsen. Forms: PCP List Discharge Date/Time: 09/07/22 17:56
[2022-09-07 17:10] VITALS: BP 130/107
== END 2022-09-07 17:56 | disposition home or self-care (01) ==
LOC: ED 12:03
DX: K92.1 Melena (principal)
CPT/HCPCS: 36415; 80053; 83690; 85025; 99283

== ENCOUNTER 2023-03-05 11:34 | Emergency (ER) | payer MEDICARE ==
[2023-03-05] MEDS ORDERED: LIDOCAINE PATCH 4% TOP STA (13:41)
[2023-03-05 14:06] LABS: BASOPHILS # (AUTO) 0.1 10^3/uL (0.0-0.1); BASOPHILS % (AUTO) 0.9 %; EOSINOPHILS # (AUTO) 0.5 10^3/uL (0.0-0.7); EOSINOPHILS % (AUTO) 7.2 %; HCT - HEMATOCRIT 36.4 % (42.0-52.0); HGB - HEMOGLOBIN 11.6 g/dL (14.0-18.0); LYMPHOCYTES # (AUTO) 1.7 10^3/uL (1.5-3.5); LYMPHOCYTES % (AUTO) 25.9 %; MEAN CORPUSCULAR HEMOGLOBIN 31.4 pg (27.0-31.0); MEAN CORPUSCULAR HGB CONC 31.9 g/dL (32.0-36.0); MEAN CORPUSCULAR VOLUME 98.6 fL (80.0-94.0); MEAN PLATELET VOLUME 10.4 fL (7.4-11.4); MONOCYTES # (AUTO) 0.6 10^3/uL (0.0-1.0); MONOCYTES % (AUTO) 8.8 %; NEUTROPHILS # (AUTO) 3.6 10^3/uL (1.5-6.6); NEUTROPHILS % (AUTO) 56.7 %; PLT - PLATELET COUNT 230 10^3/uL (130-450); RED BLOOD COUNT 3.69 10^6/uL (4.70-6.10); RED CELL DISTRIBUTION WIDTH 13.3 % (12.0-15.0); WHITE BLOOD COUNT 6.4 x10^3/uL (4.8-10.8)
[2023-03-05 14:21] LABS: ALBUMIN 4.2 g/dL (3.2-5.5); ALBUMIN/GLOBULIN RATIO 1.6 (1.0-2.2); BILIRUBIN,TOTAL 0.4 mg/dL (0.2-1.0); CALCIUM 9.2 mg/dL (8.5-10.3); CREATININE 1.6 mg/dL (0.6-1.3); POTASSIUM 4.7 mmol/L (3.5-4.5); TOTAL PROTEIN 6.8 g/dL (6.4-8.9)
--- NOTE | 2023-03-05 14:27 | ED Physician Documentation ---
History of Present Illness - Stated complaint Stated Complaint: LOWER RT BACK PX,BILAT KNEE WEAKNESS - Chief complaint Chief Complaint: Ext Problem - History obtained from History obtained from: Patient - Additonal information Additional information: Patient is an 87-year-old male presenting for evaluation of low back pain with bilateral leg weakness right greater than left. He has noticed the symptoms over the past week. He states that he lifted something a week ago and started having some sciatica pain with some pain radiating from his back into his Right hip and thigh. He has been using Aleve and gabapentin which does help with the pain. However he states that even when his pain is controlled he has been developing worsening weakness in his legs, particularly the right leg where he feels like he cannot even control them and feels like his legs are going to give out on him. He has had some falls because of the weakness. He denies hitting his head. He denies weakness in his arms. No fever. Does not take blood thinners. He reports his pain is currently a 2 out of 10 but he still has weakness in his legs.No dysuria. No bowel or bladder incontinence. Denies saddle anesthesia. Review of Systems Constitutional: denies: Fever Cardiac: denies: Chest pain / pressure Respiratory: denies: Dyspnea GI: denies: Abdominal Pain : denies: Dysuria Musculoskeletal: reports: Back pain Neurologic: reports: Focal weakness (Legs, right greater than left). denies: Head injury PD PAST MEDICAL HISTORY - Past Medical History Cardiovascular: Hypertension, High cholesterol, Arrhythmia Respiratory: Sleep apnea Neuro: None Endocrine/Autoimmune: None GI: GERD, Colon polyps : Benign prostate hypertrophy HEENT: Chronic vision loss, Chronic hearing loss Psych: Depression Musculoskeletal: Osteoarthritis Derm: None - Past Surgical History Past Surgical History: Yes General: Appendectomy, Colonoscopy, Other HEENT: Tonsil/Adenoidectomy, Other - Present Medications Home Medications: Ambulatory Orders Medication Instructions Recorded Confirmed Atorvastatin [Lipitor] 10 mg PO DAILY 10/15/15 09/07/22 Gabapentin 300 mg PO BID 10/15/15 09/07/22 Multivit-Min/Iron Fum/Folic AC 1 tab PO DAILY 10/15/15 09/07/22 [Sxsab-Ygarokf-Kfafrjeg Tablet] Vit C/E/Zinc/Lutein/Zeaxanthin 1 each PO DAILY 10/15/15 09/07/22 [[facility]] Vitamin B Complex Vit C No.4 150 mg PO DAILY 10/15/15 09/07/22 [Super B Complex] lisinopriL [Lisinopril] 5 mg PO DAILY 10/15/15 09/07/22 Albuterol Sulf [Ventolin Hfa 1 - 2 puffs INH Q4HR PRN #1 inhaler 07/17/19 09/07/22 Inhaler] buPROPion [Wellbutrin Xl] 150 mg PO BID 10/23/20 09/07/22 - Allergies Allergies/Adverse Reactions: Allergies Allergy/AdvReac Type Severity Reaction Status Date / Time No Known Drug Allergies Allergy Verified 09/05/22 15:51 - Social History Does the pt smoke?: No Smoking Status: Never smoker Does the pt drink ETOH?: No Does the pt have substance abuse?: No - Immunizations Immunizations are current?: Yes - POLST Patient has POLST: No PD ED PE NORMAL - General General: Alert and oriented X 3, No acute distress, Well developed/nourished - HEENT HEENT: Atraumatic, Moist mucous membranes, Pharynx benign - Neck Neck: Supple, no meningeal sign, No bony TTP - Cardiac Cardiac: RRR, Strong equal pulses - Respiratory Respiratory: No respiratory distress, Clear bilaterally - Abdomen Abdomen: Normal bowel sounds, Soft, Non tender, Non distended - Back Back: No spinal TTP - Derm Derm: Warm and dry - Extremities Extremities: No deformity, No tenderness to palpate - Neuro Neuro: Alert and oriented X 3, upper extremity surgeon 2-12 intact, Normal speech, Other (Symmetric patellar reflexes bilaterally). No: No motor deficit (Right leg weakness), No sensory deficit (Numbness to bilateral feet) Results - Vitals Vitals: Vital Signs - 24 hr 03/05/23 03/05/23 03/05/23 11:50 14:28 16:02 Temperature 36.5 C Heart Rate 74 64 64 Respiratory 18 20 16 Rate Blood Pressure 156/87 H 154/77 H 135/81 H O2 Saturation 99 98 95 Oxygen O2 Source Room air - EKG (time done) 1355 EKG releavant findings:: EKG personally interpreted by author of this note. Relevant findings are: Rate 64, normal sinus rhythm, no STEMI, QTc 428 - Labs Labs: Laboratory Tests 03/05/23 03/05/23 03/05/23 13:57 13:57 16:20 WBC 6.4 RBC 3.69 L Hgb 11.6 L Hct 36.4 L MCV 98.6 H MCH 31.4 H MCHC 31.9 L RDW 13.3 Plt Count 230 MPV 10.4 Neut # (Auto) 3.6 Lymph # (Auto) 1.7 [place] # (Auto) 0.6 Eos # (Auto) 0.5 Baso # (Auto) 0.1 Absolute Nucleated RBC 0.00 Nucleated RBC % 0.0 Sodium 137 Potassium 4.7 H Chloride 107 Carbon Dioxide 22 Anion Gap 8.0 BUN 41 H Creatinine 1.6 H Estimated GFR (MDRD) 41 L Glucose 94 Calcium 9.2 Total Bilirubin 0.4 AST 18 ALT 13 Alkaline Phosphatase 78 Total Protein 6.8 Albumin 4.2 Globulin 2.6 Albumin/Globulin Ratio 1.6 Urine Color YELLOW Urine Clarity CLEAR Urine pH 5.5 Ur Specific [place] 1.010 Urine Protein NEGATIVE Urine Glucose (UA) NEGATIVE Urine Ketones NEGATIVE Urine Occult Blood NEGATIVE Urine Nitrite NEGATIVE Urine Bilirubin NEGATIVE Urine Urobilinogen 0.2 (NORMAL) Ur Leukocyte Esterase NEGATIVE Ur Microscopic Review NOT INDICATED Urine Culture Comments NOT INDICATED PD Medical Decision Making - ED course Complexity details: reviewed results, re-evaluated patient, d/w patient ED course: Pt is a 87 yo M presenting for evaluation of low back pain with R>L leg weakness ongoing at least 1 week. Reports ongoing leg weakness even when back pain is improved. No head injury, headache. No upper extremity symptoms. Reflexes intact. Numbness distally which patient states is chronic for him. Distal pulses intact and extremities are warm and well perfused. No signficiant pain here. No recent illness. EKG in NSR. Labs including CBC, chemistries without significant findings. MRI Brain ordered to eval for CVA given his age and leg weakness. MRI lumbar spine also ordered given history of back pain with the leg weakness. MRI brain negative for CVA. MRI lumbar spine negative for cord compression/cauda equina. Large bladder noted on MRI. Pt voided large amount while laying down. Bladder scan shows 700ml. Patient states he can urinate more if he stands so stood up and per RN additional 600ml of UOP (seems to be charted as emesis in error but should be urine output). Reviewed work up with patient. Weakness is worse in right leg and not symmetric, reflexes intact so feel GBS is less likely at this time. Pt is ambulatory here with walker. States he has noticed weakness for a while but moreso for last week. Recommend close PCP follow up. Pt advised on strict return precautions should symptoms get worse or new symptoms arise. Departure - Departure Disposition: 01 Home, Self Care Clinical Impression: Low back pain, Leg weakness, bilateral Condition: Stable Instructions: ED Neck Back Pain General Follow-Up: Elayne Galloway ARNP [Primary Care Provider] - Comments: Our testing today does not show signs of a stroke or issues with your spinal cord causing your symptoms. You do have a lot of degenerative changes though noted in your back.You need close follow-up with your primary care provider regarding your symptoms. You may benefit from a referral to neurology. MRI BRAIN: No signs of Stroke or hemorrhage MRI LUMBAR SPINE: IMPRESSION: No compression fracture, mass, or inflammation is found. Multilevel degenerative disc disease and facet osteoarthritis as discussed above, detailed in the body of the report. The most pronounced area of degenerative change is at the L4-L5 level where prominent disc height reduction is accompanied by asymmetric severe facet osteoarthritis, left greater than right, producing high-grade stenosis at the left neural foramen. Right-sided foraminal stenosis is slightly less pronounced at the level immediately above, L3-L4, where facet hyperostosis produces asymmetric right-sided moderately severe foraminal stenosis. Forms: PCP List Discharge Date/Time: 03/05/23 17:15
--- NOTE | 2023-03-05 15:28 | MRI Report ---
PROCEDURE: MRI brain without contrast INDICATIONS: Right leg weakness TECHNIQUE: Multiplanar multisequential MR images of the brain were obtained without contrast COMPARISON: None FINDINGS: CSF Spaces: Basal cisterns are patent. No extra-axial fluid collections. Ventricles are normal in size and shape. Brain: No intracranial masses or hemorrhage. Yepez/white matter interface is normal. Brainstem appe ars normal. Diffusion-weighted images shows no evidence of acute infarct. Normal intravascular flow voids are present. Skull and face: Calvarium has normal marrow signal. Orbits appear normal. Bilateral intraocular august s replacements noted. Sinuses: No evidence of prior sinus surgery with residual lateral maxillary mucosal thickening along the floors of both sinuses. IMPRESSION: Unremarkable MRI of brain without and infarct, hemorrhage or mass lesion. Incidental bilateral maxillary mucosal sinus disease status post sinus surgery Reviewed by: Kd Lechuga MD on 03/05/2023 2:27 PM [place] Approved by: Kd Lechuga MD on 03/05/2023 2:27 PM [place] Station ID: [id number]
[2023-03-05 16:08] VITALS: BP 135/81; O2SAT 95
--- NOTE | 2023-03-05 16:17 | MRI Report ---
PROCEDURE: LUMBAR SPINE WO INDICATIONS: R leg weakness; back pain TECHNIQUE: Noncontrast sagittal T1 spin echo and T2 fast echo, sagittal STIR, axial T1 and T2 fast spin echo thr ough the lumbar spine. In cases with scoliosis, additional coronal T2 fast spin echo may be performe d. COMPARISON: None. FINDINGS: Image quality: Excellent. Alignment and Curvature: There is normal bony alignment. Bone Marrow: Marrow is of normal overall signal. No acute vertebral body compression fractures. Spinal Cord: Conus medullaris terminates at the L1 level. Visualized cord demonstrates normal signa l and size. Paraspinous Soft Tissues: No paravertebral masses. T12-L1: Asymmetric facet osteoarthritis, with anterior hyperostosis on the left at the facet margin asymmetrically mildly impinging on the left T12 nerve root. L1-L2: Normal in appearance except for mild facet osteoarthritis on the right slightly narrowing t he right neural foramen but without definite nerve root impingement.. L2-L3: Posterior transverse disc bulge, slightly greater on the right than the left. Facet osteoar thritis is symmetric, moderate in severity, with anterior hyperostosis which produces mild to moderat e asymmetric narrowing of the neural foramen at this level, right slightly greater than left, with li kelihood of right greater than left L2 nerve root impingement. Mild ligamentum flavum hypertrophy diversified crops supervisor ssing nerve roots at this level mildly. L3-L4: Degenerative posterior disc bulging is greater on the right than the left, and facet osteoarth ritis also is greater on the right. This results in asymmetric moderately severe foraminal stenosis o n the right but only minimal foraminal stenosis on the left. No significant spinal stenosis. L4-L5: Degenerative disc disease at this level is moderately severe with disc height reduction and small posterior transverse disc bulge. Facet osteoarthritis is severe on the left and moderately jenifer re on the right. Bilateral neural foraminal stenosis at this level is present, near severe on the lef t and moderate on the right. L5-S1: Mild facet osteoarthritis without spinal or foraminal stenosis. IMPRESSION: No compression fracture, mass, or inflammation is found. Multilevel degenerative disc disease and fac et osteoarthritis as discussed above, detailed in the body of the report. The most pronounced area of degenerative change is at the L4-L5 level where prominent disc height reduction is accompanied by as ymmetric severe facet osteoarthritis, left greater than right, producing high-grade stenosis at the l eft neural foramen. Right-sided foraminal stenosis is slightly less pronounced at the level immediately above, L3-L4, whe re facet hyperostosis produces asymmetric right-sided moderately severe foraminal stenosis. Reviewed by: Bijan Alfonso MD on 03/05/2023 4:16 PM PST Approved by: Bijan Alfonso MD on 03/05/2023 4:16 PM PST Station ID: [id number]
[2023-03-05 16:31] LABS: BILIRUBIN,URINE NEGATIVE (NEGATIVE); GLUCOSE, URINE (UA) NEGATIVE (NEGATIVE); KETONES,URINE (UA) NEGATIVE (NEGATIVE); LEUKOCYTE ESTERASE, URINE NEGATIVE (NEGATIVE); NITRITE,URINE NEGATIVE (NEGATIVE); OCCULT BLOOD,URINE NEGATIVE (NEGATIVE); PH,URINE 5.5 PH (5.0-7.5); PROTEIN,URINE NEGATIVE (NEGATIVE); UROBILINOGEN,URINE 0.2 (NORMAL) E.U./dL (NORMAL)
[2023-03-05 16:35] LABS: CLARITY,URINE CLEAR (CLEAR)
== END 2023-03-05 17:15 | disposition home or self-care (01) ==
LOC: ED 11:34
DX: M54.50 Low back pain, unspecified (principal); M62.81 Muscle weakness (generalized); I10 Essential (primary) hypertension
CPT/HCPCS: 36415; 70551; 72148; 80053; 81003; 85025; 93005; 99283; 99284; A9270; 81001; 87086

== ENCOUNTER 2023-07-23 11:15 | Outpatient (CLI) | payer MEDICARE ==
[2023-07-23 16:16] LABS: CHOL/HDL RATIO 3.2 (<5.0); CHOLESTEROL 131 mg/dL; HDL CHOLESTEROL 41 mg/dL; LDL CHOLESTEROL,CALCULATED 78 mg/dL; LDL/HDL RATIO 1.9 (<3.6); TRIGLYCERIDES 61 mg/dL (48-352); VLDL CHOLESTEROL 12 mg/dL
[2023-07-23 16:26] LABS: THYROID STIMULATING HORMONE 1.07 uIU/mL (0.34-5.60)
== END 2023-07-23 11:16 | disposition home or self-care (01) ==
LOC: LAB.S 11:15
PROVIDERS: ATTEND Registered Nurse
DX: E29.1 Testicular hypofunction (principal); Z13.220 Encounter for screening for lipoid disorders; Z13.29 Encounter for screening for other suspected endocrine disorder
CPT/HCPCS: 36415; 80061; 83721; 84403; 84443